=== PATIENT | female | born 1965 | race Caucasian/White ===

== ENCOUNTER → 2019-11-10 15:50 | Outpatient (CLI) | payer BC, SELFPAY ==
--- NOTE | ~2019-11-10 | XR_ITS ---
EXAMINATION: XR chest 2V 11/10/2019 16:15 INDICATION: Cough PROCEDURE: 2 view chest COMPARISON: 12/12/2014 FINDINGS: The lungs are clear. The cardiomediastinal silhouette is within normal limits. There are no pleural effusions. There is no pneumothorax suspected. IMPRESSION: 1: NO ACUTE CARDIOPULMONARY DISEASE. Reviewed, dictated and finalized at location B. NING PROGRAM DEVELOPER
--- NOTE | ~2019-11-10 | US_ITS ---
EXAMINATION: US thyroid DATE: 11/10/2019 16:13 INDICATION: Nontoxic single thyroid nodule. TECHNIQUE: Multiple ultrasound images of the thyroid were obtained. COMPARISON: Ultrasound 01/13/2019 FINDINGS: The right thyroid lobe measures 3.7 x 1.6 x 1.5 cm. The left thyroid lobe measures 3.8 x 1.7 x 1.6 c m. In the left thyroid lobe, there is a 1.2 cm solid, very hypoechoic, vbqiw-fwtj-luyo nodule with i ll-defined margin without echogenic foci (TI-RADS TR4). IMPRESSION: 1. Stable thyroid nodule. Thyroid ultrasound is recommended in one year. Reviewed, dictated and finalized at location A. R SYSTEMS ENGINEER
== END ==
PROVIDERS: Visit Provider Internal Medicine Endocrinology, Diabetes & Metabolism
DX: E04.1 Nontoxic single thyroid nodule (principal); R05 Cough
CPT/HCPCS: 71046; 76536

== ENCOUNTER 2020-02-18 17:08 | Outpatient (CLI) | payer BC, SELFPAY ==
--- NOTE | ~2020-02-18 | XR_ITS ---
EXAMINATION: XR ankle RT min 3V DATE: 02/18/2020 17:49 INDICATION: Right ankle pain. TECHNIQUE: 4 views of right ankle were obtained. COMPARISON: Right ankle radiographs 12/28/2013 FINDINGS: Bone alignment is normal. No fracture. Joint spaces are normal. There are enthesophytes at medial malleolus and plantar aspect of calcaneal tuberosity. IMPRESSION: 1. No fracture. Reviewed, dictated and finalized at location A. IMPRESSION: 1. No fracture.
== END 2020-02-18 17:09 | disposition home or self-care (01) ==
PROVIDERS: PCP Chiropractor; Visit Provider Chiropractor
DX: M25.571 Pain in right ankle and joints of right foot (principal)
CPT/HCPCS: 73610

== ENCOUNTER → 2020-04-23 10:56 | Outpatient (CLI) | payer BC, SELFPAY ==
--- NOTE | ~2020-04-23 | US_ITS ---
EXAMINATION: US thyroid DATE: 04/23/2020 11:28 INDICATION: Nontoxic goiter. TECHNIQUE: Multiple ultrasound images of the thyroid were obtained. COMPARISON: Thyroid ultrasound 11/10/2019, 01/13/2019 FINDINGS: The right thyroid lobe measures 4.1 x 1.7 x 1.7 cm. The left thyroid lobe measures 4.1 x 1.9 x 1.7 c m. In the left thyroid lobe, there is a 10 mm solid, very hypoechoic, rtamg-okrw-mgyk nodule with il l-defined margin without echogenic foci (TI-RADS TR4). In the right thyroid lobe, there is a 5 mm robby id, very hypoechoic, uicxv-xzxc-bplm nodule with smooth margin without echogenic foci (TR4). There is a 4 mm nodule in right thyroid lobe. In right thyroid lobe, there is a 7 mm solid, hyperechoic, wide r-than-tall nodule with smooth margin without echogenic foci (TR3). In the right thyroid lobe, there is a 1.1 cm solid, hyperechoic, jlenj-tsag-ujqb nodule with smooth margin without echogenic foci (TR3 ). IMPRESSION: 1. Thyroid nodules. Thyroid ultrasound is recommended in one year. Reviewed, dictated and finalized at location B.
== END ==
PROVIDERS: PCP Family Medicine; Visit Provider Internal Medicine Endocrinology, Diabetes & Metabolism
DX: E04.2 Nontoxic multinodular goiter (principal)
CPT/HCPCS: 76536

== ENCOUNTER → 2020-04-23 10:56 | Outpatient (CLI) | payer BC, SELFPAY ==
--- NOTE | ~2020-04-23 | CT_ITS ---
EXAMINATION: CT abdomen pelvis wo con EXAM DATE: 04/23/2020 11:16 INDICATION: Hematuria, acute left flank pain. TECHNIQUE: Spiral CT of the abdomen and pelvis was performed without contrast. Axial, coronal and sag ittal images were reviewed. The dose-length product (DLP) for this examination was 960.87 mGy-cm. T he exposure was tailored according to patient size (auto mA exposure control), and iterative reconstr uction (ASIR) was used as additional dose reduction technique. There is no prior study for compariso n. FINDINGS: There is no nephrolithiasis or hydronephrosis. The uterus is unremarkable. The bladder is unremarkable. The liver, spleen, adrenal glands and pancreas are unremarkable. There are cholecy stectomy clips. There is no retroperitoneal or pelvic lymphadenopathy. The appendix is normal. Small umbilical and supraumbilical hernias containing nonobstructed small roel wel. Stomach is unremarkable. There is mild sigmoid colonic diverticulosis. There is no adjacent inf lammatory change to suggest diverticulitis. There is expected amount of colonic stool. No free intr aperitoneal gas. The heart is normal in size. There are no pericardial or pleural effusions. The lung bases are unremarkable. The bones are unremarkable. IMPRESSION: 1. No nephrolithiasis, hydronephrosis or acute intra-abdominal findings. 2. Small umbilical, supra umbilical hernias containing nonobstructed small bowel Reviewed, dictated and finalized at location A. IMPRESSION: 1. No nephrolithiasis, hydronephrosis or acute intra-abdominal findings. 2. Small umbilical, supra umbilical hernias containing nonobstructed small bow el
== END ==
PROVIDERS: PCP Family Medicine
DX: R31.9 Hematuria, unspecified (principal); R10.9 Unspecified abdominal pain; K42.9 Umbilical hernia without obstruction or gangrene
CPT/HCPCS: 74176

== ENCOUNTER 2020-09-28 13:13 | Emergency (ER) | payer BC, SELFPAY ==
--- NOTE | 2020-09-28 13:14 | ED.GENADULT ---
HPI - General Adult General Stated complaint: loss of taste/smell/cough Time Seen by Provider: 09/28/20 13:14 Source: patient Mode of arrival: ambulatory Limitations: no limitations History of Present Illness HPI narrative: 55-year-old female patient presents to the [facility] with complaints of cold symptoms, cough and a sore throat for the past 5 to 6 days. Patient states she lost her taste and smell couple of days goes as well. Patient does have history of type 2 diabetes and thought that this could be side effects because they recently changed her insulin. Patient states her sugars have been elevated recently but that is again what she thought was due to her recent medication change. Patient states she has had a cough and a little bit of chest soreness when she coughs but denies any current chest pain or shortness of breath at this time. Denies any recent fevers. Denies any nausea, vomiting or diarrhea. Related Data Home Medications Medication Instructions Recorded Confirmed glimepiride 1 mg PO DAILY 09/28/20 09/28/20 levothyroxine 25 mcg PO DAILY 09/28/20 09/28/20 Allergies Allergy/AdvReac Type Severity Reaction Status Date / Time levofloxacin Allergy Intermediate Rash Verified 09/28/20 13:51 nystatin Allergy Unknown Rash Verified 09/28/20 13:51 Review of Systems Review of Systems: Narrative: CONSTITUTIONAL: Denies fever, chills, or sweats. EYES: Denies visual changes, redness, or discharge. ENT: Denies rhinorrhea, congestion, positive sore throat, denies otalgia. Positive loss of taste and smell CARDIOVASCULAR: Denies chest pain, palpitations, or edema. RESPIRATORY: Positive cough, denies dyspnea. GASTROINTESTINAL: Denies abdominal pain, nausea, vomiting, or diarrhea. GENITOURINARY: Denies dysuria or hematuria. SKIN: Denies rash or itching. MUSCULOSKELETAL: Denies back pain, joint pain, or myalgia. NEUROLOGIC: Positive headache, denies numbness, or weakness. PSYCHIATRIC: Denies anxiety or depression. [facility] Past Medical History Medical History (Updated 09/28/20 @ 14:01 by JAMAL Nation) Abnormal uterine bleeding Asthma Carpal tunnel syndrome Diverticulitis Kidney stones Rosacea Sleep apnea Type 2 diabetes mellitus Awfga-Vraxivcqt-Hebwt (WPW) syndrome Surgical History Surgical History (Updated 09/28/20 @ 13:18 by JAMAL Nation) H/O inguinal hernia repair Hx of cholecystectomy Family History Family History Father Family history of lung cancer Other Diabetes mellitus Family history of coronary artery disease Social History Social History Smoking status: Never smoker Alcohol intake: never Comments At the time of my signature I agree with nursing past medical history, surgical, social, and family history. There is no relevant family history pertinent to the presenting complaint. Exam Narrative: Exam Narrative: GENERAL: Well-appearing, well-nourished, and in no acute distress. HEAD: Normocephalic, atraumatic. EYES: PERRLA and EOMI. ENT: Nares clear, no rhinorrhea or epistaxis. Mucous membranes moist. Bilateral TMs are clear with no erythema or foreign bodies in the canal. Posterior pharynx with no erythema, tonsillar Zeferino, exudates or lesions present. NECK: Supple. No lymphadenopathy CHEST: Clear to auscultation. No respiratory distress. Patient able talk in clear complete sentences but there is some coughing noted during the exam. No tripoding noted at this time. HEART: Regular rate and rhythm. No murmur heard. Normal peripheral pulses. ABDOMEN: Soft, nontender, nondistended, normal active bowel sounds. EXTREMITIES: Normal range of motion. No edema. SKIN: Warm, dry, no rash. NEURO: No focal deficits. Alert and oriented x3. Course Vital Signs Vital signs: Vital Signs Temperature 37.0 C 09/28/20 13:29 Pulse Rate 98 09/28/20 13:29 Blood Pressure 1
[2020-09-28 13:29] VITALS: BP 112/84; PULSE 98; TEMP 37; O2SAT 99
== END 2020-09-28 14:10 | disposition home or self-care (01) ==
PROVIDERS: Emergency Provider Nurse Practitioner Family; PCP Family Medicine
DX: U07.1 COVID-19 (principal); J45.909 Unspecified asthma, uncomplicated; G47.30 Sleep apnea, unspecified; E11.9 Type 2 diabetes mellitus without complications; I45.6 Pre-excitation syndrome
CPT/HCPCS: 87426; 99213; C9803; G0463

== ENCOUNTER → 2021-02-09 17:11 | Outpatient (CLI) | payer BC, SELFPAY ==
--- NOTE | ~2021-02-09 | XR_ITS ---
XR hip RT min 2V DATE: 02/09/2021 19:09 INDICATION: Right hip pain TECHNIQUE: AP and lateral views COMPARISON: 12/2014 pelvis 11/07/2014 right hip FINDINGS: No fracture or dislocation, avascular necrosis or bone destruction of the right hip is evid ent. Right hip joint space appears relatively preserved. The pubic symphysis and right sacroiliac joselito nt appear intact. IMPRESSION: No significant abnormality Reviewed, dictated and finalized at location A. IMPRESSION: No significant abnormality
--- NOTE | ~2021-02-09 | XR_ITS ---
XR lumbar spine min 4V DATE: 02/09/2021 19:09 INDICATION: Low back pain TECHNIQUE: AP, lateral, bilateral oblique views and coned lateral lumbosacral view COMPARISON: 12/12/2014 lumbosacral spine FINDINGS: Diffuse osteopenia. Degenerative spurring of the lower thoracic spine. Mild lumbar scoliosis. There is moderate to moderately severe degenerative disc disease of the lumbar and lumbosacral spine. The included lower thoracic and lumbar pedicles are intact. No lumbar fracture or bone destruction, s pondylolysis or spondylolisthesis is detected. The sacroiliac joints are unremarkable. Multiple surgical clips overlie the right upper quadrant, consistent with cholecystectomy. IMPRESSION: Thoracic and lumbar spondylosis Diffuse osteopenia Reviewed, dictated and finalized at location A.
== END ==
PROVIDERS: PCP Family Medicine; Visit Provider Chiropractor
DX: M54.5 Low back pain (principal); M25.551 Pain in right hip; M47.814 Spondylosis without myelopathy or radiculopathy, thoracic region; M47.816 Spondylosis without myelopathy or radiculopathy, lumbar region; M85.88 Other specified disorders of bone density and structure, other site
CPT/HCPCS: 72110; 73502

== ENCOUNTER → 2021-08-26 09:31 | Outpatient (CLI) | payer BC, SELFPAY ==
--- NOTE | ~2021-08-26 | US_ITS ---
EXAMINATION: US thyroid DATE: 08/26/2021 09:56 INDICATION: Goiter. TECHNIQUE: Multiple ultrasound images of the thyroid were obtained. COMPARISON: Ultrasound 04/23/2020, 01/13/2019 FINDINGS: The right thyroid lobe measures 4.2 x 1.5 x 1.7 cm. The left thyroid lobe measures 3.6 x 1.2 x 1.7 c m. In the left thyroid lobe, there is a 4 mm nodule. In the right thyroid lobe, there is a 6 mm clau d, hypoechoic, qoavt-fvjd-baut nodule with smooth margin without echogenic foci (TI-RADS TR4). In the right thyroid lobe, there is a 7 mm solid, hypoechoic, kxpcu-lequ-dvjk nodule with smooth margin wit hout echogenic foci (TR4). IMPRESSION: 1. Small thyroid nodules, likely not clinically significant. No follow-up is needed. Reviewed, dictated and finalized at location A. ER IMPRESSION: 1. Small thyroid nodules, likely not clinically significant. No follow-up is ne eded.
== END ==
PROVIDERS: Visit Provider Internal Medicine Endocrinology, Diabetes & Metabolism
DX: E04.2 Nontoxic multinodular goiter (principal)
CPT/HCPCS: 76536

== ENCOUNTER 2022-05-18 14:45 | Outpatient (RCR) | payer BC, SELFPAY ==
--- NOTE | 2022-03-27 09:49 | PTOPEVAL ---
Thank you for referring Pascale Garcia to [facility].? She is scheduled to be seen for therapy? 2 x/week for 4 weeks. Please review, sign, date and return this plan of care LEO. I agree with and certify that the following plan of care is medically necessary. Referring Physician Date Attending Provider: Jorge Braden MD Past Medical History Source of Past Medical History Patient Neurological History Hx Cerebrovascular Accident (CVA) Yes: February 2021 Cardiovascular History Hx Hypercholesterolemia Yes: meds Hx Hypertension Yes: meds Respiratory History Hx Sleep Apnea Yes: Bipap Hx Other Respiratory Disorders Yes: SOB with exertion Gastrointestinal History Hx Cholecystectomy Yes Hx Hernia Yes: umbilical hernia repair Genitourinary History Hx Genitourinary Disorders No Significant History Musculoskeletal History Hx Arthritis Yes: B knee arthritis Hx Back Pain Yes Endocrine History Hx Diabetes Yes: meds Hx Hypothyroidism Yes: meds HEENT History Hx Other HEENT Disorders Yes: wear glasses Other History Hx Cancer Yes: skin cancer on face-- benign Hx Other Medical Conditions Yes: obesity 300# Evaluation Information Diagnosis s/p CVA with R weakness and LBP; water therapy Onset March 2021 Subjective Information had in pt rehab, then day care Query Text:As Reported By Patient/ /therapy at [facility]- stopped there Family March 10; still having problems with R leg and walking; have not done any water exercises since CVA and want to do that Prior Level of Function Activity Level (Last 3 Months) Hand Dominance Right Activity of Daily Living Ability Needs Some Help Indoor/Home Mobility Needs Some Help Community Mobility Needs Some Help Stairs Ability Not-Applicable Functional Cognition (Planning, Shopping Independent , Taking Medications) Cooking No Cleaning No Laundry No Shopping No Driving No Home Setting Home Type House Environmental Barriers Ramp Living Situation With Spouse Mobility Assistive Devices (Used Last 3 Cane, Large Based Quad,Walker, Months) Platform,Walker, Wheeled, Wheelchair, Motorized Bathing Equipment Grab Bars,Hand Held Shower,Tub Transfer Bench Toileting Equipment
--- NOTE | 2022-03-27 11:50 | OTOPEVAL ---
OCCUPATIONAL THERAPY INITIAL EVALUATION AND POC 03/27/22 Thank you for referring Pascale Garcia to [facility].? The patient is scheduled to be seen for therapy?2x/week for 5 weeks. Plan 1x/week aquatic and 1x/week land. Please review, sign, date and return this plan of care LEO. I agree with and certify that the following plan of care is medically necessary. Referring Physician Date Referring Provider: Jorge Braden, *OT Outpatient Evaluation Start: 03/27/22 09:27 Outpatient Past Medical History Past Medical History Source of Past Medical History Patient Neurological History Hx Cerebrovascular Accident (CVA) Yes: February 2021 Cardiovascular History Hx Hypercholesterolemia Yes: meds Hx Hypertension Yes: meds Respiratory History Hx Sleep Apnea Yes: Bipap Hx Other Respiratory Disorders Yes: SOB with exertion Gastrointestinal History Hx Cholecystectomy Yes Hx Hernia Yes: umbilical hernia repair Genitourinary History Hx Genitourinary Disorders No Significant History Musculoskeletal History Hx Arthritis Yes: B knee arthritis Hx Back Pain Yes Endocrine History Hx Diabetes Yes: meds Hx Hypothyroidism Yes: meds HEENT History Hx Other HEENT Disorders Yes: wear glasses Other History Hx Cancer Yes: skin cancer on face-- benign Hx Other Medical Conditions Yes: obesity 300# Evaluation Information Problem Diagnosis s/p CVA with R sided weakness Onset March 2021 Subjective Information Patient is s/p inpatient rehab Query Text:As Reported By Patient/ then day care/therapy at [facility] Family - this stopped there March 10. Has a resting hand splint for night use. Has a Saebo finger extension brace also but there have been difficulties with skin redness/pressure in this brace and she hasn't been wearing this one for a few weeks. She gets botox in the right UE and LE, next one scheduled for 04/05/22. Prior Level of Function Activity Level (Last 3 Months) Hand Dominance Right Activity of Daily Living Ability Needs Some Help Indoor/Home Mobility Needs Some Help Community Mobility Needs Some Help Stairs Ability Not-Applicable Functional Cognition (Planning, Shopping Independent , Taking Medications) Cooking No Cleaning No Laundry No Shopping No D
--- NOTE | 2022-04-25 11:43 | PTOPEVAL ---
PHYSICAL THERAPY REEVALUATION AND UPDATED PLAN OF CARE 04-25-22 Refer to the clinical summary below, for her status today, compared to the initial evaluation. The goals were partially achieved. Continue PT treatment on land, 2x/wk for 3 weeks. Thank you for referring Pascale Garcia to [facility].? Please review, sign, date and return this updated plan of care LEO. I agree with and certify that the following plan of care is medically necessary. Referring Physician Date Attending Provider: Jorge Braden MD Subjective Information Pascale reports: feels like her Query Text:As Reported By Patient/ standing is better; have not Family had any falls; use the ankle brace for R as needed when doing more walking; want to be able to stand at the kitchen counter to help with some cooking; want to continue therapy to get stronger and walk more; Pain Assessment Timing of Pain Assessment Timing of Pain Assessment Re-assessment Self Report Self Report Pain Level 0 Pain Score Pain Score 0: Self Report Gross Lower Extremity Strength functional strength testing: - sit to/from stand from 15 seat height, without use of UE x 5 reps indep -supine SLR R 22--decreased control of knee- hold flexion/ L 25 reps; - supine hip abduction R 22-- flexion tone and spasms of leg /L 25 reps -------- in supine, hip and knee flexion-- unable to lie flat due to flexion of hips and knees; verbal review of HEP, reinforced doing supine exercises, she tends to do only sitting exercises due to transfer in/out bed is hard to do -------- static stand without UE support 1 min & 32 seconds; increased wt shift onto L LE; performed L shoulder motion: flexion and abduction x 15 reps each and able to maintain her standing balance; Bed Mobility Bed Type Mat
--- NOTE | 2022-04-27 11:10 | OTOPEVAL ---
OCCUPATIONAL THERAPY RE-EVALUATION REPORT 04/27/22 Patient presents today for OT re-evaluation after 8 outpatient sessions for right UE hemiplegia and tone following CVA. Her treatments have consisted of aquatic therapy as well as land sessions focused on improving right UE flexibility, strength, and functional use. As described above she is making gains with functional ROM and flexibility. She is very motivated and compliant with her HEP. Continued skilled OT indicated to progress her HEP, continued functional strengthening, and therapeutic activities to facilitate optimal functional independence. Thank you for referring Pascale Garcia to [facility].? The patient is scheduled to be seen for therapy? 2x/week for 3 weeks. Please review, sign, date and return this plan of care LEO. I agree with and certify that the following plan of care is medically necessary. Referring Physician Date Referring Provider: Jorge BradenMD *OT Outpatient Evaluation Start: 03/27/22 09:27 Evaluation Information Diagnosis s/p CVA with R sided weakness Onset March 2021 Subjective Information Patient reports that she feels Query Text:As Reported By Patient/ like her arm is improving. 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 Pain Assessment Timing of Pain Assessment Timing of Pain Assessment Assessment Self Report Self Report Pain Level 0 Pain Score Pain Score 0: Self Report Upper Extremity Range of Motion Scapular/ Shoulder Range of Motion Right Shoulder Flexion - Active 30 Shoulder Extension - Active 40 Shoulder Abduction - Active 60 Scapular/Shoulder Range of Motion Shoulder flexion improved from Comments 20 degrees Extension improved from 30 degrees Abduction improved from 30 degrees Elbow/Forearm Range of Motion Right Elbow Flexion - Active 130 Elbow Extension - Active -50 Forearm Supination - Active 0 Forearm Supination - Passive 90 Forearm Pronation - Active 30 Forearm Pronation - Passive 90 Elbow/Forearm Range of Motion Comments Pt is actively moving into neutral with supination and about 30 degrees pronation. Passive is WFL and she no longer has pain with passive supination. Wrist Range of Motion Right Wrist Flexion - Active 0 Wrist Extension - Active 20 Wrist Range of Motion Comments She had no active wrist motion at the initial eval. Today she was able to extend the wrist 20 degrees.
--- NOTE | 2022-05-18 14:32 | OTOPDC ---
Evaluation Information Assessment Status Discharge Diagnosis s/p CVA with right sided weakness Onset March 2021 Subjective Information Pascale has participated in 13 outpatient OT treatment sessions, which have included aquatic and land, to facilitate improved right UE ROM and strength. She has a resting hand splint, which has been difficult to wear due to tone, but they have been trying to wear it as able. She reports intermittent compliance with her HEP. Reported Pain Level Pain Score 0: Self Report Assessment OT Clinical Summary Patient presents today for OT re-evaluation for right UE hemiplegia and tone following CVA. At this time she has reached a progress plateau with ROM and strength of the right UE. She is continues to be limited by weakness and tone. Discussed the importance of home program carryover daily for optimal results. We are discharging today with the patient independent with HEP. Plan of Care OT Services Indicated No
--- NOTE | 2022-05-18 15:01 | PTOPDC ---
Evaluation Information Assessment Status Discharge Subjective Information Pascale reports: was able to get L pant leg and shoe on herself; is trying to walk more from room /room in the house, only when someone is with her; have not used quad cane due to fear of falling and not steady enough when walking; no falls; easier to get up from sitting on recliner or couch ; is not using any ankle brace on R; Reported Pain Level Pain Score self report: at rest 0/10 Pain Score 0: Self Report Additional Pain Score Comments knee pain increases with standing and walking, to 8/10 at worst Assessment PT Clinical Summary Pascale has received 12 PT sessions. Compared to the last reevaluation: static standing has increased by 18 seconds; gait distance has increased by 40' and required 3 more standing rest breaks; LE strength is increased slightly; Her gait pattern is the same, continues to have increased tone in R LE; SOB and B knee pain limit her also. The goals were partially achieved. Discharge PT services, and she is to continue with her LE exercises at home and walking in home. Plan of Care PT Services Indicated No
== END 2022-05-19 09:45 | disposition home or self-care (01) ==
LOC: ANHPT 14:45
PROVIDERS: PCP Family Medicine; Referring Provider Family Medicine; Visit Provider Family Medicine
DX: M54.50 Low back pain, unspecified (principal); I69.851 Hemiplegia and hemiparesis following other cerebrovascular disease affecting right dominant side; I63.319 Cerebral infarction due to thrombosis of unspecified middle cerebral artery
CPT/HCPCS: 97110; 97112; 97113; 97116; 97140; 97162; 97165; 97530

== ENCOUNTER → 2022-05-22 13:52 | Outpatient (CLI) | payer BC, SELFPAY ==
--- NOTE | ~2022-05-22 | US_ITS ---
EXAMINATION: US thyroid DATE: 05/22/2022 14:17 INDICATION: Goiter. TECHNIQUE: Multiple ultrasound images of the thyroid were obtained. COMPARISON: Ultrasound 08/26/2021, 04/23/2020, 01/13/2019 FINDINGS: The right thyroid lobe measures 3.4 x 1.5 x 1.5 cm. The left thyroid lobe measures 3.4 x 1.5 x 1.1 c m. In the right thyroid lobe, there is a 5 mm solid, hypoechoic, wider than tall nodule with ill-def ined margin without echogenic foci (TI-RADS TR4). In the right thyroid lobe, there is a 4 mm nodule. In the left thyroid lobe, there is a 4 mm nodule. In the left thyroid lobe, there is a 11 mm solid, h ypoechoic, wider than tall nodule with lobulated margin without echogenic foci (TR4), stable from 01/13. IMPRESSION: 1. Multinodular goiter. Thyroid ultrasound is recommended in 2 years. Reviewed, dictated and finalized at location A.
== END ==
PROVIDERS: PCP Family Medicine; Visit Provider Internal Medicine Endocrinology, Diabetes & Metabolism
DX: E04.2 Nontoxic multinodular goiter (principal)
CPT/HCPCS: 76536

== ENCOUNTER 2022-08-26 23:01 | Observation (INO) | payer BC, SELFPAY ==
--- NOTE | ~2022-08-26 | XR_ITS ---
EXAMINATION: XR chest 2V DATE: 08/26/2022 23:35 INDICATION: Leg weakness, stroke symptoms TECHNIQUE: AP and lateral views of the chest are obtained. COMPARISON: 11/10/2019 FINDINGS: The lungs are free of acute opacities. No pleural effusion or pneumothorax. The cardiomedia stinal silhouette is normal. There is mild thoracic spondylosis. IMPRESSION: 1. No acute cardiopulmonary abnormality. Reviewed, dictated and finalized at location A. [employer]
--- NOTE | ~2022-08-26 | MR_ITS ---
EXAMINATION: MR brain/brain stem wo/w con DATE: 08/27/2022 12:31 INDICATION: Stroke symptoms TECHNIQUE: Magnetic resonance imaging (MRI) of the brain and brainstem was performed without and with 20 mL Multihance intravenous contrast. Sequences included sagittal and axial T1-weighted SE, axial d iffusion-weighted FS SE, axial T2*-weighted GRE, axial T2-weighted FLAIR, and axial T2-weighted FSE. Postcontrast axial and coronal T1-weighted SE was obtained. Apparent diffusion coefficient (ADC) maps were created. COMPARISON: None. FINDINGS: There are no areas of restricted diffusion to suggest acute infarction. Small region of encephalomala rajesh in the left basal ganglia involving the posterior limb of the left internal capsule and adjacent posterior left lentiform nucleus consistent with chronic infarct. No intracranial hemorrhage or abnor mal intracranial mass lesion. There are scattered areas of nonspecific increased T2-weighted signal i ntensity in the cerebral and pontine white matter, predominantly involving the deep and periventricul ar white matter. There are no intraparenchymal signal abnormalities seen on the other pulse sequences . The ventricles are symmetric and normal in size. There are no abnormal extra-axial fluid collection s. Flow voids are seen in the cerebral arteries on the T2-weighted sequences consistent with their ex pected patency. Changes of bilateral intraocular lens replacement. Mucosal thickening the paranasal s inuses. There are no areas of abnormal enhancement on the post contrast images. IMPRESSION: 1. No acute intracranial process or abnormally enhancing brain lesions. 2. Small old infarct at the left basal ganglia 3. Scattered nonspecific cerebral and pontine white matter T2 hyperintensity most likely related to c hronic small vessel ischemic disease. Reviewed, dictated and finalized at location A. ULTING GROUP ANALYST IMPRESSION: 1. No acute intracranial process or abnormally enhancing brain lesions. 2. Small old infarct at the left basal ganglia 3. Scattered nonspecific cerebral and pontine white matter T2 hyperintensity mo st likely related to chronic small vessel ischemic disease.
--- NOTE | ~2022-08-26 | US_ITS ---
EXAMINATION: US carotid duplex BI DATE: 08/27/2022 13:44 INDICATION: Stroke symptoms with vertigo and disturbance of skin sensation. TECHNIQUE: Grayscale, color Doppler, and pulsed Doppler images of the cervical carotid arteries were obtained. The degree of vessel stenosis is placed in one of the following categories: normal, <50%, 5 0-69%, >=70% but less than near-occlusion, near-occlusion, or total occlusion. Note that percent sten osis relative to normal distal artery lumen diameter is indirectly measured from velocity measurement s as described by Brandon, et al. Radiology 2003; 229:340-346. COMPARISON: None. FINDINGS: RIGHT: The right common carotid artery (CCA) peak systolic velocity (PSV) is 82 cm/s. The right internal car otid artery (ICA) PSV is 68 cm/s. The right ICA end-diastolic velocity (EDV) is 19 cm/s. The right IC A/CCA PSV ratio is 0.8. Grayscale and color Doppler images yield an estimate of <50% diameter reducti on from plaque in the ICA. The external carotid artery (ECA) PSV is 95 cm/s. There is antegrade flow in the right vertebral artery. LEFT: The left CCA PSV is 102 cm/s. The left ICA PSV is 97 cm/s. The left ICA EDV is 35 cm/s. The left ICA/ CCA PSV ratio is 0.9. Grayscale and color Doppler images yield an estimate of <50% diameter reduction from plaque in the ICA. The ECA PSV is 126 cm/s. There is antegrade flow in the left vertebral arter y. IMPRESSION: 1. <50% stenosis in the right internal carotid artery. 2. <50% stenosis in the left internal carotid artery. Reviewed, dictated and finalized at location A. OCCUPATIONAL THERAPY ASST
--- NOTE | ~2022-08-26 | CT_ITS ---
EXAMINATION: CT brain wo con INDICATION: Lower limb weakness COMPARISON: None TECHNIQUE: Standard unenhanced head CT. The dose-length product (DLP) was 605.33 mGy-cm. The mA was a djusted according to patient size. Iterative reconstruction technique was employed. FINDINGS: There is no acute intraparenchymal hemorrhage. No evidence of mass lesion. No evidence of a cute infarction. There is an old lacunar infarct of the left basal ganglia and queen radiata. There is mild periventricular and subcortical hypodensity probably related to small vessel ischemic disease . There is mild prominence of the sulci and ventricles related to cerebral atrophy. Intracranial calc ified cerebral atherosclerosis is noted. There are no extra-axial collections. There is no mass effec t or midline shift. The orbits and soft tissues are unremarkable. The visualized sinuses and mastoid air cells are well aerated. IMPRESSION: 1. No acute intracranial abnormality. 2. Age related findings. Reviewed, dictated and finalized at location A. HER MACHINE
[2022-08-26 23:00] VITALS: BP 134/82; PULSE 84; RESP 18; O2SAT 98
[2022-08-26 23:27] LABS: Basophils Percent Auto 0.6 % (0.2-1.2); Eosinophils Absolute Auto 0.1 K/mm3 (0-0.3); Hematocrit 43.6 % (37.0-47.0); Hemoglobin 14.3 g/dL (12.0-15.0); Immature Granulocyte Absolute 0.02 K/mm3 (0.00-0.031); Immature Granulocyte Percent A 0.3 % (0-0.5); Lymphocytes Absolute Auto 2.64 K/mm3 (0.9-3.2); Lymphocytes Percent Auto 37.2 % (18.3-44.2); Mean Corpuscular HGB Conc 32.8 g/dl (32-36); Mean Corpuscular Hemoglobin 29.2 pg (26-34); Mean Corpuscular Volume 89.2 fl (80-100); Mean Platelet Volume 9.4 fl (7.4-10.4); Monocytes Absolute Auto 0.6 K/mm3 (0.1-0.6); Monocytes Percent Auto 7.9 % (2.6-8.5); Neutrophils Absolute Auto 3.7 K/mm3 (1.3-6.7); Platelet Count Result 205 k/mm3 (150-375); Red Blood Count 4.89 M/mm3 (4.2-5.4); Red Cell Distribution Width 13.7 % (11.5-14.5); White Blood Count 7.1 K/mm3 (4.5-10.0)
[2022-08-26 23:29] LABS: Glucose Point of Care 150 mg/dl (65-105)
[2022-08-26 23:37] LABS: Alanine Aminotransferase 29 U/L (6-35); Albumin Level 4.4 g/dL (3.5-5.1); Alkaline Phosphatase 116 U/L (38-126); Anion Gap 7 mmol/L (8-16); Aspartate Amino Transferase 35 U/L (14-36); Bilirubin,Total 0.9 mg/dL (0.2-1.3); Blood Urea Nitrogen 10 mg/dL (7-17); Calcium 9.4 mg/dL (8.4-10.2); Carbon Dioxide 27 mmol/L (22-30); Chloride 104 mmol/L (98-107); Estimated Glomerular Filt Rate > 60; Glucose 162 mg/dL (65-110); Sodium 138 mmol/L (137-145)
[2022-08-26 23:49] LABS: Troponin I < 0.012 ng/mL (0.000-0.034)
--- NOTE | 2022-08-27 00:18 | ED.NEUROSD ---
HPI - Neuro Symptoms/Deficit General Chief Complaint: Neuro Symptoms/Deficit Stated Complaint: CODE STROKE Time Seen by Provider: 08/26/22 23:06 History of Present Illness HPI Narrative: Patient is a 56-year-old female who presents ER with concerns for stroke. She reports tonight she was having heaviness in her right leg as well as some pain in her shoulder with right deltoid numbness. She had similar symptoms 24 hours prior to this that only abated after she woke up from going to bed. Patient had a stroke 6 months ago that left her with residual right-sided weakness and contractures not functional. She gets Botox injections through this at [facility]. Related Data Home Medications Medication Instructions Recorded Confirmed levothyroxine 25 mcg tablet 25 mcg PO DAILY 09/28/20 08/27/22 atorvastatin 40 mg tablet 40 mg PO DAILY 08/27/22 08/27/22 baclofen 5 mg tablet 10 mg PO Q6H 08/27/22 08/27/22 cyclobenzaprine 10 mg tablet 10 mg PO TID PRN Spasms 08/27/22 08/27/22 dapagliflozin 5 mg tablet (Farxiga) 5 mg PO DAILY 08/27/22 08/27/22 docusate sodium 100 mg capsule 100 mg PO BID 08/27/22 08/27/22 (Colace) ergocalciferol (vitamin D2) 1,250 50,000 unit PO WEEKLY 08/27/22 08/27/22 mcg (50,000 unit) capsule (Vitamin D2) fluoxetine 20 mg capsule 20 mg PO DAILY 08/27/22 08/27/22 gabapentin 300 mg capsule 300 mg PO BID 08/27/22 08/27/22 lisinopril 10 mg tablet 10 mg PO DAILY 08/27/22 08/27/22 melatonin 10 mg tablet 10 mg PO HS 08/27/22 08/27/22 meloxicam 15 mg tablet 15 mg PO DAILY 08/27/22 08/27/22 metoprolol tartrate 25 mg tablet 25 mg PO BID 08/27/22 08/27/22 ondansetron 4 mg disintegrating 4 mg PO Q6H PRN Nausea 08/27/22 08/27/22 tablet pantoprazole 40 mg tablet,delayed 40 mg PO QAM 08/27/22 08/27/22 release semaglutide 14 mg tablet (Rybelsus) 14 mg PO QAM 08/27/22 08/27/22 tramadol 50 mg tablet 50 mg PO Q6H PRN Pain 08/27/22 08/27/22 Allergies Allergy/AdvReac Type Severity Reaction Status Date / Time levofloxacin Allergy Intermediate Rash Verified 09/28/20 13:51 nystatin Allergy Unknown Rash Verified 09/28/20 13:51 Review of Systems Review of Systems: All systems reviewed & are unremarkable except as noted in HPI and below Constitutional: Constitutional: Denies chills, Denies fatigue and Denies fever(s) ENT: Denies nasal congestion and Denies sore throat Cardiovascular: Cardiovascular: Denies chest pain, Denies rapid heart rate and Denies radiating jaw, neck or arm pain Respiratory: Respiratory: Denies cough and Denies dyspnea Gastrointestinal: Gastrointestinal: Denies abdominal pain, Denies nausea and Denies vomiting Integumentary/Breasts: Skin/Breast: Denies erythema and Denies rash Neurologic: Denies syncope, Denies headache(s), Reports focal weakness and Reports numbness PMFSH Past Medical History Medical History (Updated 08/27/22 @ 06:36 by Tomer Lerner MD) Abnormal uterine bleeding Asthma Carpal tunnel syndrome CVA (cerebral vascular accident) Diverticulitis Kidney stones Rosacea Sleep apnea Type 2 diabetes mellitus Ddnrm-Jzcmrsfmd-Ielwp (WPW) syndrome Surgical History Surgical History (Updated 09/28/20 @ 13:18 by JAMAL Nation) H/O inguinal hernia repair Hx of cholecystectomy Family History Family History (Updated 08/27/22 @ 05:40 by Austin Chavarria RN) Father Family history of lung cancer Mother Family history of coronary artery disease Other Diabetes mellitus Social History Social History Smoking status: Never smoker Alcohol intake: never Substance use: never Lack of Transportation: No Lack of Food: Never True Current Housing: I Have Housing Concerned About Future Housing: No Difficulty Paying Gas/Electric Bills: No Difficulty Paying for Meds: No Currently Unemployed: No Education: High School Diploma/GED Difficulty w/ Childcare or Family Care: No Spiritual care con
[2022-08-27 00:23] LABS: Prothrombin Time 12.7 Seconds (11.1-14.7)
[2022-08-27 00:24] LABS: Partial Thromboplastin Time 29.6 SECONDS (22.3-36.8)
--- NOTE | 2022-08-27 01:00 | PC.NURSE ---
0100: Multiple nurses attempted to find viable site for IV access after EMS fails 2 attempts in route as well as mannequin decorator with no success d/t small vessels, contractures, and pt being morbidly obese. Only viable source was vein of right breast for emergent need of blood and medication access.
[2022-08-27] MEDS: CLOPIDOGREL BISULFATE 300 MG TABLET PO (02:03)
--- NOTE | 2022-08-27 02:16 | PM.IMHP ---
H&P: HPI History of Present Illness Date/Time: 08/27/22 02:16 Chief Complaint: R side weakness Narrative: This is a 56-year-old female with past medical history for stroke, morbid obesity, hypothyroidism, type diabetes mellitus, obstructive sleep apnea, were Parkinson White syndrome, carpal tunnel syndrome. Patient presented to emergency room after she had an episode of speech disturbance and right-sided weakness according to patient symptoms 1st started on Sunday however resolved and came back Sunday. Patient denies any vision changes, any nausea, vomiting, no lightheadedness, no loss of consciousness, no dizziness, no chest pain, no shortness of breath, no fevers, no rigors, no chills, no palpitations. Upon arrival to emergency room patient symptoms had resolved a stroke team was consulted and it was determined the patient was out of therapeutic window. Patient is been placed in observation for further evaluation management and treatment. Preliminary workup has been essentially nonrevealing. A CT of the head redemonstrated old stroke. [facility] Past Medical History Medical History (Updated 08/27/22 @ 04:01 by Sally Lang MD) Abnormal uterine bleeding Asthma Carpal tunnel syndrome Diverticulitis Kidney stones Rosacea Sleep apnea Type 2 diabetes mellitus Ddnnn-Wxjtanxsb-Etzis (WPW) syndrome Surgical History Surgical History (Updated 09/28/20 @ 13:18 by JAMAL Nation) H/O inguinal hernia repair Hx of cholecystectomy Family History Family History Father Family history of lung cancer Other Diabetes mellitus Family history of coronary artery disease Social History Social History Smoking status: Never smoker Alcohol intake: never Meds Home Medications and Allergies Home Medications Medication Instructions Recorded Confirmed Type benzonatate 200 mg capsule 200 mg PO TID PRN cough #30 caps 09/28/20 Rx glimepiride 1 mg tablet 1 mg PO DAILY 09/28/20 09/28/20 History levothyroxine 25 mcg tablet 25 mcg PO DAILY 09/28/20 09/28/20 History Allergies Allergy/AdvReac Type Severity Reaction Status Date / Time levofloxacin Allergy Intermediate Rash Verified 09/28/20 13:51 nystatin Allergy Unknown Rash Verified 09/28/20 13:51 Vital Signs Vital Signs - 24 hr 08/26/22 23:00 Pulse Rate 84 Respiratory Rate 18 Blood Pressure 134/82 Pulse Oximetry 98 Exam Narrative: Patient is laying in a stretcher Const: General: comfortable, no acute distress, well developed, alert, awake and obese (Morbid) Nutritional Appearance: obese morbidly obese Orientation/consciousness: patient oriented x3 HENMT: Head: normal to inspection, normocephalic and atraumatic Ears: hearing grossly normal bilaterally Face/Nose/Sinus: normal facial exam Face and sinus: normal facial exam Eyes: General: appearance normal, both eyes and all related structures Pupils: Equal, round and reactive pupils present EOM: EOMs intact bilaterally Neck: Neck: full ROM, no lymphadenopathy and no JVD Thyroid: thyroid normal Lymphatic: no lymphadenopathy noted Resp: Effort & Inspection: normal respiratory effort and able to speak in complete sentences Auscultation: clear to auscultation bilaterally Cardio: Jugular venous distension: no JVD Rate: regular rate Rhythm: regular rhythm Heart sounds: S1 normal heart sound present and S2 normal heart sound present GI: GI Palp: Yes Soft to palpation and Yes No hepatosplenomegaly present : General: Yes deferred Skin: Rashes: no rashes Wounds: no wounds Neuro: General: patient oriented x3 and CN's II-XI intact bilaterally Cranial nerves: Yes CN's II-XII intact bilaterally and Yes Equal, round and reactive pupils present Cognition (Neuro): normal cognition Speech: normal speech Gait exam (Neuro): Unable to assess gait Motor exam (neuro): 5/5 motor strength pres
[2022-08-27 03:23] LABS: Influenza A QL RT-PCR Negative (Negative); Influenza B QL RT-PCR Negative (Negative); SARS-CoV-2 RNA PCR Negative
[2022-08-27 03:37] LABS: Add Urine Microscopic? YES; Appearance Urine Clear (Clear); Bilirubin Urine Negative (Negative); Blood Urine Negative (Negative); Color Urine Light Yellow (Yellow); Glucose Urine UA 3+ mg/dL (Negative); Ketones Urine Negative (Negative); Leukocyte Esterase Ur Negative LEU/UL (Negative); Nitrate Urine Negative (Negative); Protein Urine Negative (Negative); Specific Grav Ur 1.025 (1.001-1.035); Urobilinogen Urine 0.2 mg/dL (<2.0)
[2022-08-27 03:42] LABS: Bacteria Urine Trace /hpf; Mucus Urine Rare /lpf; Squamous Epithelial Cell Urine Many /hpf (Few)
[2022-08-27 04:55] VITALS: BP 147/73; PULSE 86; RESP 20; TEMP 36.3; O2SAT 100
--- NOTE | 2022-08-27 05:02 | ADMGEN ---
This patient, Pascale Garcia, was admitted to [facility] Surg Room 317-02. Patient/family oriented to hospital policies and general routines including ID bracelet, bed and alarms, visiting hours, pain management, procedures, bathroom and other care routines, personal items, smoking policy, room service/diet, and visiting hours. Information on how to activate the Rapid Response Team has been discussed. Patient/Family are encouraged to report perceived risks to care and to ask questions if they do not understand what they are told or what they should do.
[2022-08-27 05:11] VITALS: BMI 63.6
[2022-08-27 08:00] VITALS: BP 156/83; PULSE 87; PULSE 94; RESP 20; TEMP 35.9; O2SAT 98
[2022-08-27 08:27] LABS: Glucose Point of Care 109 mg/dl (65-105)
--- NOTE | 2022-08-27 08:30 | PM.IMPN ---
Progress Note: A&P Assessment and Plan (1) TIA (transient ischemic attack): Code(s): G45.9 - Transient cerebral ischemic attack, unspecified Status: Acute Assessment and Plan: Patient presented after symptoms for more than 24 hours. [facility] Stroke team consulted and patient not a candidate for TPA. She had a prior stroke with right sided weakness RUE approximately 6 months ago and treated at [facility] CT head demonstrates old stroke left basal ganglia, no acute changes. Brain MRI pending Carotid US pending Echocardiogram with bubble study pending. Lipid panel with LDL <70, triglycerides 130, HDL 43. A1c 5.4% Loading dose of plavix given in ED. Continue plavix 75 mg daily and ASA 81 mg daily. Continue high-intensity statin Neurology consulted and appreciate recommendations PT/OT consult Neuro checks Q4 hours (2) Morbidly obese: Code(s): E66.01 - Morbid (severe) obesity due to excess calories Status: Chronic Assessment and Plan: Recommend weight loss through lifestyle and diet modifications (3) Sleep apnea: Code(s): G47.30 - Sleep apnea, unspecified Status: Chronic Assessment and Plan: clarify CPAP use (4) Type 2 diabetes mellitus: Qualifiers: Diabetes mellitus power shovel operator helper insulin use: without power shovel operator helper use Diabetes mellitus complication status: with circulatory complication Diabetes mellitus complication detail: with other circulatory complications Qualified Code(s): E11.59 - Type 2 diabetes mellitus with other circulatory complications Code(s): E11.9 - Type 2 diabetes mellitus without complications Status: Chronic Assessment and Plan: A1c <7%. Continue Rybelsus and Farxxiga. Patient to bring from home. (5) Rosacea: Code(s): L71.9 - Rosacea, unspecified Status: Chronic Assessment and Plan: Follow-up in outpatient setting as needed (6) Hypertension: Qualifiers: Hypertension type: primary hypertension Qualified Code(s): I10 - Essential (primary) hypertension Code(s): I10 - Essential (primary) hypertension Status: Chronic Assessment and Plan: vitals reviewed. Permissive hypertension for now. Resume lisinopril and metoprolol at home doses. (7) Hypothyroid: Qualifiers: Hypothyroidism type: acquired Qualified Code(s): E03.9 - Hypothyroidism, unspecified Code(s): E03.9 - Hypothyroidism, unspecified Status: Chronic Assessment and Plan: TSH within normal limits. Continue levothyroxine at home dose. (8) Chronic constipation: Code(s): K59.09 - Other constipation Status: Chronic Assessment and Plan: continue stool softeners Time Spent With Patient Time with patient: 15 - 25 minutes Subjective Date/time seen: 08/27/22 08:30 She reports her right leg heaviness is somewhat improved. No aphasia, slurred speech, disorientation, dysphagia or facial droop. Review of Systems Review of Systems: All systems reviewed & are unremarkable except as noted in HPI and below Exam Narrative: GENERAL: No acute distress. obese adult female sitting up in bed. HEENT: Normocephalic. Sclera non-icteric. PERRL. EOM intact. Hearing grossly intact. moist mucous membranes NECK: Supple. No JVD RESPIRATORY: RR regular and unlabored. Lung sounds clear to auscultation bilaterally. No adventitious breath sounds. CARDIO: Normal S1 and S2 regular rate and rhythm. No murmurs, gallops, or rubs. GI: soft, soft and nontender to palpation, bowel sounds present in all quadrants. SPINE: grossly normal. SKIN: no rashes or lesions. Fair, warm and dry. Fair turgor. EXTREMITIES: RUE contracted, able to perform extension at shoulder joint only. Right hand grasp 2/5 weak. LUE full ROM 5/5 strength hand grasp. RLE 3-4/5, LLE 4/5. intact dorsi and plantar flexion. no edema, redness or calf tenderness. dorsalis pedis pulses +2 bilaterally. NEURO: Slight right mo
[2022-08-27 08:42] LABS: Cholesterol 146 mg/dL (0-200); HDL Direct 43 mg/dL; Triglycerides 130 mg/dL (<150)
[2022-08-27 08:53] LABS: LDL Cholesterol Direct 66 mg/dL
[2022-08-27 08:58] LABS: Hemoglobin A1C 5.4 % (<5.7)
[2022-08-27] MEDS: ATORVASTATIN 40 MG TABLET PO (10:38)
[2022-08-27] MEDS: ASPIRIN 81 MG ENTERIC TABLET PO (10:38)
[2022-08-27] MEDS: LEVOTHYROXINE SODIUM 25 MCG TABLET PO (10:38)
[2022-08-27] MEDS: FLUoxetine HCL 20 MG CAPSULE PO (10:38)
[2022-08-27] MEDS: DOCUSATE SODIUM 100 MG CAPSULE PO (10:38)
[2022-08-27] MEDS: GABAPENTIN 300 MG CAPSULE PO ×2 (10:39→16:43)
[2022-08-27] MEDS: CYCLOBENZAPRINE HCL 10 MG TABLET PO (10:42)
[2022-08-27] MEDS: PANTOPRAZOLE 40 MG TABLET PO (11:31)
[2022-08-27] MEDS: LORazepam INJ (*CRX) 2 MG/ML VIAL 1 MG IV PUSH (11:32)
[2022-08-27] MEDS: BACLOFEN 10 MG TABLET PO ×3 (11:32→22:41)
[2022-08-27 12:00] VITALS: BP 128/79; PULSE 90; PULSE 91; RESP 20; TEMP 36.2; O2SAT 97
--- NOTE | 2022-08-27 14:58 | PHAR ---
THE FOLLOWING HOME MEDS HAVE BEEN VERIFIED BY PHARMACY: RYBELSUS 14 MG TABLETS FARXIGA 5 MG TABLETS
[2022-08-27 16:00] VITALS: PULSE 98
--- NOTE | 2022-08-27 16:37 | WPDNEURCNPN ---
Assessment and Plan Assessment and plan (1) Acute CVA (cerebrovascular accident): Code(s): I63.9 - Cerebral infarction, unspecified Status: Acute (2) Morbidly obese: Code(s): E66.01 - Morbid (severe) obesity due to excess calories Status: Acute (3) TIA (transient ischemic attack): Code(s): G45.9 - Transient cerebral ischemic attack, unspecified Status: Acute (4) Type 2 diabetes mellitus: Code(s): E11.9 - Type 2 diabetes mellitus without complications Status: Acute Plan possibility of new stroke superimposed on the old stroke MRI results are pending patient is being continued on clopidogrel 75 mg daily along with the aspirin 81 mg daily in addition to all her other medications further recommendation will be made tomorrow according to the results of the MRI Consult date: 08/27/22 HPI: Pascale Garcia is a 56 year old female admitted to the hospital through the emergency room for the concerns of stroke reportedly she was having heaviness in her right lower extremity along with pain in her right shoulder and numbness of the right deltoid she had the similar symptoms 24 hours ago which abated subsequently patient has had any stroke 6 months ago that left her with residual right hemiparesis, she has been taking multiple medications which does include atorvastatin 40 mg daily baclofen 10 mg Q 6 hours Flexeril 10 mg t.i.d. p.r.n. in addition to treatment for diabetes including Farsi the she also takes fluoxetine 20 mg daily lisinopril 10 mg daily metoprolol 25 mg b.i.d. and tramadol on p.r.n. basis, her past history is consistent with the stroke in the past sleep apnea, type 2 diabetes mellitus and Vzbgz-Brqbioyec-Bqzip syndrome, she is a never alcohol intake her or smoker and initial evaluation in the emergency room documented contractured of the right upper extremity with difficulty in lifting her right lower extremity off the bed routine vital signs with normal CBC and BMP except blood sugar of 162 she was admitted with the diagnosis of acute cerebrovascular accident her initial CT scan in the emergency room was negative for the bleed, MRI of the brain has been done to the results are not available at this particular time Review of Systems Review of Systems: All systems reviewed & are unremarkable except as noted in HPI and below [facility] Past Medical History Medical History (Updated 08/27/22 @ 06:36 by Tomer Lerner MD) Abnormal uterine bleeding Asthma Carpal tunnel syndrome CVA (cerebral vascular accident) Diverticulitis Kidney stones Rosacea Sleep apnea Type 2 diabetes mellitus Gjkna-Jkhunnrsg-Jfabh (WPW) syndrome Surgical History Surgical History (Updated 09/28/20 @ 13:18 by JAMAL Nation) H/O inguinal hernia repair Hx of cholecystectomy Family History Family History (Updated 08/27/22 @ 05:40 by Austin Chavarria RN) Father Family history of lung cancer Mother Family history of coronary artery disease Other Diabetes mellitus Social History Social History Smoking status: Never smoker Alcohol intake: never Substance use: never Lack of Transportation: No Lack of Food: Never True Current Housing: I Have Housing Concerned About Future Housing: No Difficulty Paying Gas/Electric Bills: No Difficulty Paying for Meds: No Currently Unemployed: No Education: High School Diploma/GED Difficulty w/ Childcare or Family Care: No Spiritual care concerns: No Meds Home Medications and Allergies Home Medications Medication Instructions Recorded Confirmed Type levothyroxine 25 mcg tablet 25 mcg PO DAILY 09/28/20 08/27/22 History atorvastatin 40 mg tablet 40 mg PO DAILY 08/27/22 08/27/22 History baclofen 5 mg tablet 10 mg PO Q6H 08/27/22 08/27/22 History cyclobenzaprine 10 mg tablet 10 mg PO TID PRN Spasms 08/27/22 08/27/22 History dapagliflozin 5 mg tablet (Farxiga) 5 mg PO DAILY
[2022-08-27 18:10] VITALS: BP 146/88; PULSE 83; RESP 17; TEMP 35.9; O2SAT 95
[2022-08-27 20:00] VITALS: BP 158/88; PULSE 78; PULSE 87; TEMP 36.4; O2SAT 98
[2022-08-27] MEDS: MELATONIN 5 MG TABLET 10 MG PO (22:41)
[2022-08-27] MEDS: METOPROLOL TARTRATE 25 MG TABLET PO (22:42)
[2022-08-27 23:37] LABS: Glucose Point of Care 106 mg/dl (65-105)
[2022-08-28] VITALS (10 sets, daily range): BP systolic 141–169; BP diastolic 68–95; PULSE 68–98; RESP 17–22; TEMP 35.8–36.4; O2SAT 76–98
--- NOTE | 2022-08-28 | ECHO_ITS ---
Patient Info Name: Pascale Garcia Age: 56 years : 1965 Gender: Female Ht: 59 in Wt: 314 lbs BSA: 2.54 m2 HR: 77 bpm BP: 169 / 95 mmHg Heart Rhythm: Sinus Rhythm Technical Quality: Fair Exam Date: 08/28/2022 10:06 AM Exam Location: [facility] Card Pulmonary Patient Status: Outpatient Admit Date: 08/27/2022 Staff Ordering Physician: Abigail Willis APRN Dump Motor Operator: Valeria Emanuel RDCS Attending Provider: Sally Lang MD Referring Physician: Lazaro LARA; Exam Type: CA echo doppler w bubble study Study Info Indications - stroke Complete two-dimensional, color flow and Doppler transthoracic echocardiogram is performed with agitated saline. Contrast/Agitated Saline Contrast/Ag. Saline: Agitated Saline Amount: 30.00 ml Administered By: Ely Phoenix Existing IV Access: Yes IV Access Condition: patent with no signs of infiltration Summary 1. Technically somewhat difficult exam because of obesity. 2. Left ventricular hypertrophy with normal size normal systolic function and grade 1 diastolic noncompliance. 3. Mild left atrial enlargement. 4. Mild mitral annular calcification. 5. Agitated saline contrast injection demonstrates no intracardiac shunt. Left Ventricle Left ventricular chamber dimension is normal. Left ventricular systolic function is normal, estimated at 60-65%. There is mild concentric increased left ventricular wall thickness. The left ventricular diastolic function is grade I diastolic dysfunction. Right Ventricle Right ventricular chamber dimension is normal. Left Atria Left atrial chamber dimension is mildly enlarged. Right Atria Right atrial chamber dimension is normal. Atrial Septum Intact interatrial septum visualized by agitated saline imaging. Aortic Valve The aortic valve is trileaflet. Pulmonic Valve The pulmonic valve is not well visualized. Mitral Valve The mitral valve has normal leaflets. The mitral valve annulus is mildly calcified. Tricuspid Valve The tricuspid valve leaflets are normal. Pericardium/Pleural The pericardium appears normal. Aorta The aortic root size at the sinus of Valsalva is normal. Left Ventricular Outflow Tract Name Value Normal LVOT 2D LVOT Diameter 2.0 cm LVOT Doppler LVOT Peak Gradient 5 mmHg LVOT Mean Gradient 3 mmHg LVOT VTI 28 cm LVOT VTI/AV VTI Ratio 1.0 LVOT Stroke Volume 83 ml LVOT CO 6.0 l/min LVOT CI 2.4 l/min/m2 Pulmonic Valve Name Value Normal RVOT Doppler RVOT Peak Gradient 2 mmHg PV Doppler
[2022-08-28] MEDS: WATER FOR IRRIGATION, STERILE 1,000 ML BOTTLE 1000 ML (03:08)
[2022-08-28] MEDS: BACLOFEN 10 MG TABLET PO ×3 (04:11→14:51)
[2022-08-28 06:40] LABS: Hemoglobin 13.7 g/dL (12.0-15.0); Mean Corpuscular HGB Conc 32.6 g/dl (32-36); Mean Corpuscular Hemoglobin 28.4 pg (26-34); Mean Platelet Volume 9.5 fl (7.4-10.4); Platelet Count Result 216 k/mm3 (150-375); Red Blood Count 4.83 M/mm3 (4.2-5.4); Red Cell Distribution Width 13.6 % (11.5-14.5); White Blood Count 6.2 K/mm3 (4.5-10.0)
[2022-08-28 06:50] LABS: Anion Gap 7 mmol/L (8-16); Blood Urea Nitrogen 8 mg/dL (7-17); Calcium 9.2 mg/dL (8.4-10.2); Carbon Dioxide 28 mmol/L (22-30); Chloride 104 mmol/L (98-107); Estimated Glomerular Filt Rate > 60; Glucose 117 mg/dL (65-110); Potassium 3.8 mmol/L (3.4-5.0); Sodium 139 mmol/L (137-145)
[2022-08-28] MEDS: ASPIRIN 81 MG ENTERIC TABLET PO (09:44)
[2022-08-28] MEDS: LEVOTHYROXINE SODIUM 25 MCG TABLET PO (09:44)
[2022-08-28] MEDS: CLOPIDOGREL BISULFATE 75 MG TABLET PO (09:44)
[2022-08-28] MEDS: ATORVASTATIN 40 MG TABLET PO (09:44)
[2022-08-28] MEDS: FLUoxetine HCL 20 MG CAPSULE PO (09:45)
[2022-08-28] MEDS: GABAPENTIN 300 MG CAPSULE PO ×2 (09:45→17:13)
[2022-08-28] MEDS: PANTOPRAZOLE 40 MG TABLET PO (09:45)
[2022-08-28] MEDS: METOPROLOL TARTRATE 25 MG TABLET PO ×2 (09:45→17:13)
[2022-08-28] MEDS: DOCUSATE SODIUM 100 MG CAPSULE PO ×2 (09:58→17:13)
[2022-08-28] MEDS: lisinopriL 20 MG TABLET PO (09:58)
--- NOTE | 2022-08-28 10:11 | PCPTNOTE ---
Prepped room//gather resources, but was stopped by radiology for testing. Will Complete eval as pt becomes available.
--- NOTE | 2022-08-28 10:16 | WPDNEURCNPN ---
Assessment and Plan Assessment and plan (1) Right upper extremity numbness: Code(s): R20.0 - Anesthesia of skin Status: Acute (2) Hypothyroid: Qualifiers: Hypothyroidism type: acquired Qualified Code(s): E03.9 - Hypothyroidism, unspecified Code(s): E03.9 - Hypothyroidism, unspecified Status: Chronic (3) Hypertension: Qualifiers: Hypertension type: primary hypertension Qualified Code(s): I10 - Essential (primary) hypertension Code(s): I10 - Essential (primary) hypertension Status: Chronic (4) Type 2 diabetes mellitus: Qualifiers: Diabetes mellitus complication detail: with other circulatory complications Diabetes mellitus complication status: with circulatory complication Diabetes mellitus mcc insulin use: without mcc use Qualified Code(s): E11.59 - Type 2 diabetes mellitus with other circulatory complications Code(s): E11.9 - Type 2 diabetes mellitus without complications Status: Chronic (5) Morbidly obese: Code(s): E66.01 - Morbid (severe) obesity due to excess calories Status: Chronic (6) Sleep apnea: Code(s): G47.30 - Sleep apnea, unspecified Status: Chronic Plan Pascale Garcia is a 56 year old female with a history of prior stroke, hypothyroidism, type 2 diabetes, obstructive sleep apnea, bryant parkinson white syndrome, carpal tunnel syndrome presenting with RUE numbness/paraesthesias and transient worsening of RLE weakness. MRI brain was negative for acute stroke. Other consideration for numbness of the right upper extremity is radiculopathy vs compressive neuropathy (carpal tunnel syndrome, ulnar neuropathy). - Continue ASA 81mg daily - Continue Lipitor 40mg daily - MRI of cervical spine can be done as outpatient if RUE paraesthesias persist - No further inpatient work up needed as patient is back to baseline Consult date: 08/28/22 Time Seen: 10:16 Reason for consult: RUE numbness HPI: Pascale Garcia is a 56 year old female with a history of prior stroke, hypothyroidism, type 2 diabetes, obstructive sleep apnea, bryant Parkinson white syndrome, carpal tunnel syndrome presenting with RUE numbness and RLE weakness. Patient has a history of prior stroke six months ago that resulted in residual R hemiparesis, which had improved over the course of a few months. On day of presentation, patient expressed that she was having heaviness of her RLE along with R shoulder pain and numbness over the right deltoid. The heaviness she was experiencing was worse than her baseline weakness in the RLE. She presented to [place] ED where her symptoms has resolved. Case discussed with stroke team and she was not a candidate for tPA. Her CT head was negative for acute process. Carotid doppler showed <50% stenosis bilaterally. MRI brain showed old infarct in the L basal ganglia but no acute stroke. BP was in the 130s systolic on presentation. Patient is no longer having any sensory changes in the RUE and her strength is back to baseline. Review of Systems Constitutional: Constitutional: Reports no additional constitutional complaints Eyes: Eyes: Reports no additional eye complaints ENT: Reports system reviewed and no additional complaints, except as documented Cardiovascular: Cardiovascular: Reports no additional cardiovascular complaints Respiratory: Respiratory: Reports no additional respiratory complaints Gastrointestinal: Gastrointestinal: Reports no additional gastrointestinal complaints Genitourinary: Genitourinary: Reports no additional female genitourinary complaints Musculoskeletal: Musculoskeletal: Reports back pain Integumentary/Breasts: Skin/Breast: Reports system reviewed and no additional complaints, except as docu Neurologic: Reports as per HPI Psychiatric: Psychiatric: Reports depression Comments: chronic, sees therapist [facility] Past Medical History Medical History (Reviewed 08/28/22 @ 1
--- NOTE | 2022-08-28 16:07 | PM.DS ---
DS: Admitting Diagnosis Discharge Date 08/28/2022 1607 Admitting Diagnosis TIA (transient ischemic attack) Morbidly obese Sleep apnea Type 2 diabetes mellitus right leg weakness DS: Discharge Diagnosis Discharge Diagnosis (1) TIA (transient ischemic attack): Code(s): G45.9 - Transient cerebral ischemic attack, unspecified Status: Acute Assessment and Plan: Patient presented after symptoms of right leg heaviness and weakness worsened from prior stroke symptoms. She presented more than for more than 24 hours. [facility] Stroke team consulted and patient not a candidate for TPA. She had a prior stroke with right sided weakness RUE approximately 6 months ago and treated at [facility] CT head demonstrates old stroke left basal ganglia, no acute changes. Brain MRI negative for acute stoke. Carotid US <50% right and left ICA stenosis. Echocardiogram with bubble study no shunt, grade 1 diastolic dysfunction. . Lipid panel with LDL <70, triglycerides 130, HDL 43. A1c 5.4% Loading dose of plavix given in ED. Continued plavix 75 mg daily but stopped when brain MRI negative for acute stroke Continued on ASA 81 mg daily and high-intensity statin Neurology consulted and appreciate recommendations PT/OT consulted and patient was noted to have severe anxiety/panic during therapy sessions. Xanax 0.125 mg PO x1 was trialed and helped patient participate. Home health was recommended. Neuro at baseline at discharge. No speech therapy interventions were recommended. BP 140-150/80-90s. Metoprolol continued. Lisinopril increased 20 mg daily x 7 days, then to increase to 40 mg daily. Counseled on daily BP monitoring. (2) Morbidly obese: Code(s): E66.01 - Morbid (severe) obesity due to excess calories Status: Chronic Assessment and Plan: Recommend weight loss through lifestyle and diet modifications (3) Sleep apnea: Code(s): G47.30 - Sleep apnea, unspecified Status: Chronic Assessment and Plan: Recommended CPAP use. (4) Type 2 diabetes mellitus: Qualifiers: Diabetes mellitus complication detail: with other circulatory complications Diabetes mellitus complication status: with circulatory complication Diabetes mellitus long term care administrator insulin use: without long term care administrator use Qualified Code(s): E11.59 - Type 2 diabetes mellitus with other circulatory complications Code(s): E11.9 - Type 2 diabetes mellitus without complications Status: Chronic Assessment and Plan: A1c <7%. Continue Rybelsus and Farxxiga. Patient to bring from home. (5) Rosacea: Code(s): L71.9 - Rosacea, unspecified Status: Chronic Assessment and Plan: Follow-up in outpatient setting as needed (6) Hypertension: Qualifiers: Hypertension type: primary hypertension Qualified Code(s): I10 - Essential (primary) hypertension Code(s): I10 - Essential (primary) hypertension Status: Chronic Assessment and Plan: vitals reviewed. Permissive hypertension for 24 hours post symptoms. Then antihypertensives resumed.. increased lisinopril with goal of 40 mg daily. Continued metoprolol at home doses. (7) Hypothyroid: Qualifiers: Hypothyroidism type: acquired Qualified Code(s): E03.9 - Hypothyroidism, unspecified Code(s): E03.9 - Hypothyroidism, unspecified Status: Chronic Assessment and Plan: TSH within normal limits. Continue levothyroxine at home dose. (8) Chronic constipation: Code(s): K59.09 - Other constipation Status: Chronic Assessment and Plan: continue stool softeners DS: Summary Hospital Course Reason for hospitalization: speech disturbance and right leg heaviness. Hospital Course: Pascale Garcia is a 56-year-old female with ischemic stroke approximately 6 months ago, morbid obesity, hypothyroidism, type 2 diabetes mellitus, obstructive sleep apnea, and carpal tunnel syndrome.? Patient
--- NOTE | 2022-08-28 17:06 | PM.IMPN ---
Progress Note: A&P Assessment and Plan (1) TIA (transient ischemic attack): Code(s): G45.9 - Transient cerebral ischemic attack, unspecified Status: Acute Assessment and Plan: Patient presented after symptoms for more than 24 hours. [facility] Stroke team consulted and patient not a candidate for TPA. She had a prior stroke with right sided weakness RUE approximately 6 months ago and treated at [facility] CT head demonstrates old stroke left basal ganglia, no acute changes. Brain MRI no acute stroke Carotid US <50% left/right ICA stenosis Echocardiogram with bubble study pending. Lipid panel with LDL <70, triglycerides 130, HDL 43. A1c 5.4% Loading dose of plavix given in ED. Stopped as no acute stroke noted on MRI Continue ASA 81 mg daily and high-intensity statin Neurology consulted and appreciate recommendations PT/OT consult and recommend SNF, but patient does not want rehab. Consult care coordination for home health needs. Neuro checks Q4 hours (2) Morbidly obese: Code(s): E66.01 - Morbid (severe) obesity due to excess calories Status: Chronic Assessment and Plan: Recommend weight loss through lifestyle and diet modifications (3) Sleep apnea: Code(s): G47.30 - Sleep apnea, unspecified Status: Chronic Assessment and Plan: Encourage CPAP use. (4) Type 2 diabetes mellitus: Qualifiers: Diabetes mellitus complication detail: with other circulatory complications Diabetes mellitus complication status: with circulatory complication Diabetes mellitus snf insulin use: without snf use Qualified Code(s): E11.59 - Type 2 diabetes mellitus with other circulatory complications Code(s): E11.9 - Type 2 diabetes mellitus without complications Status: Chronic Assessment and Plan: A1c <7%. Continue Rybelsus and Farxxiga. Patient to bring from home. (5) Rosacea: Code(s): L71.9 - Rosacea, unspecified Status: Chronic Assessment and Plan: Follow-up in outpatient setting as needed (6) Hypertension: Qualifiers: Hypertension type: primary hypertension Qualified Code(s): I10 - Essential (primary) hypertension Code(s): I10 - Essential (primary) hypertension Status: Chronic Assessment and Plan: vitals reviewed. BP 141/68 to 158/88. Increase lisinopril 20 mg daily and continue metoprolol at home dose. (7) Hypothyroid: Qualifiers: Hypothyroidism type: acquired Qualified Code(s): E03.9 - Hypothyroidism, unspecified Code(s): E03.9 - Hypothyroidism, unspecified Status: Chronic Assessment and Plan: TSH within normal limits. Continue levothyroxine at home dose. (8) Chronic constipation: Code(s): K59.09 - Other constipation Status: Chronic Assessment and Plan: continue stool softeners (9) Anxiety: Code(s): F41.9 - Anxiety disorder, unspecified Status: Acute Assessment and Plan: Anxiety related to ambulation post-stroke. Continue prozac Add buspar 7.5 mg BID PRN xanax 0.25 mg daily before therapy. Plan All patient and family questions answered to the best of my ability Time Spent With Patient Time with patient: 25 - 35 minutes Subjective Date/time seen: 08/28/22 17:06 She denies new symptoms or concerns. No overnight events. Her IV blew and her echocardiogram had to be deferred. No aphasia, slurred speech, dysphasia, worsening right leg heaviness, new paresthesia or dizziness. She has intermittent nausea, but no emesis. She notices worsening nausea when getting up. She worked with PT today and felt very anxious and had nausea. Her reports her physical level has declined in the last few weeks and is interested in home health therapy. PT recommends more therapy. Patient has 24 hour care at home. Review of Systems Review of Systems: All systems reviewed & are unremarkable except as noted in H
[2022-08-28] MEDS: MELATONIN 5 MG TABLET 10 MG PO (21:37)
[2022-08-28] MEDS: busPIRone HCL 2.5 MG, busPIRone HCL 5 MG 7.5 MG PO (21:38)
[2022-08-28] MEDS: TOLNAFTATE 1% POWDER 45 GM BTL 1 APPLIC TOPICAL (21:38)
[2022-08-29] VITALS: BP 126/68; PULSE 85; PULSE 88; RESP 18; TEMP 36.8; O2SAT 98
[2022-08-29 01:45] VITALS: PULSE 80; RESP 18; O2SAT 96
[2022-08-29 04:00] VITALS: BP 141/93; PULSE 77; RESP 18; TEMP 36.8; O2SAT 98
[2022-08-29] MEDS: BACLOFEN 10 MG TABLET PO ×2 (06:29→09:48)
[2022-08-29 08:00] VITALS: BP 140/77; PULSE 74; RESP 14; TEMP 35.9; O2SAT 97
[2022-08-29] MEDS: ATORVASTATIN 40 MG TABLET PO (09:48)
[2022-08-29] MEDS: ASPIRIN 81 MG ENTERIC TABLET PO (09:48)
[2022-08-29] MEDS: DOCUSATE SODIUM 100 MG CAPSULE PO (09:49)
[2022-08-29] MEDS: FLUoxetine HCL 20 MG CAPSULE PO (09:49)
[2022-08-29] MEDS: GABAPENTIN 300 MG CAPSULE PO (09:49)
[2022-08-29] MEDS: busPIRone HCL 2.5 MG, busPIRone HCL 5 MG 7.5 MG PO (09:49)
[2022-08-29] MEDS: lisinopriL 20 MG TABLET PO (09:50)
[2022-08-29] MEDS: LEVOTHYROXINE SODIUM 25 MCG TABLET PO (09:50)
[2022-08-29] MEDS: PANTOPRAZOLE 40 MG TABLET PO (09:50)
[2022-08-29 09:53] VITALS: PULSE 84
[2022-08-29] MEDS: METOPROLOL TARTRATE 25 MG TABLET PO (09:53)
[2022-08-29] MEDS: TOLNAFTATE 1% POWDER 45 GM BTL 1 APPLIC TOPICAL (09:54)
[2022-08-29] MEDS: ALPRAZolam (*CRX) 0.25 MG TABLET PO (11:02)
[2022-08-29 12:00] VITALS: BP 111/77; PULSE 82; RESP 14; TEMP 36.2; O2SAT 98
== END 2022-08-29 15:15 | disposition home health service (06) ==
LOC: ANHED 23:33 → ANH3MEDSUR 08-27 04:12
PROVIDERS: Nurse Practitioner Family; Admitting Provider Internal Medicine; Emergency Provider Emergency Medicine; PCP Family Medicine; Visit Provider Chiropractor
DX: G45.9 Transient cerebral ischemic attack, unspecified (principal); E66.01 Morbid (severe) obesity due to excess calories; Z68.44 Body mass index [BMI] 60.0-69.9, adult; G47.30 Sleep apnea, unspecified; E11.59 Type 2 diabetes mellitus with other circulatory complications; L71.9 Rosacea, unspecified; I11.9 Hypertensive heart disease without heart failure; E03.9 Hypothyroidism, unspecified; K59.09 Other constipation; I69.351 Hemiplegia and hemiparesis following cerebral infarction affecting right dominant side; Z20.822 Contact with and (suspected) exposure to COVID-19; R90.82 White matter disease, unspecified; R29.704 NIHSS score 4; R29.898 Other symptoms and signs involving the musculoskeletal system; R20.0 Anesthesia of skin; J45.909 Unspecified asthma, uncomplicated; G56.00 Carpal tunnel syndrome, unspecified upper limb; I34.81 Nonrheumatic mitral (valve) annulus calcification; K57.92 Diverticulitis of intestine, part unspecified, without perforation or abscess without bleeding; Z87.442 Personal history of urinary calculi; I45.6 Pre-excitation syndrome; Z79.84 Long term (current) use of oral hypoglycemic drugs; Z79.82 Long term (current) use of aspirin; Z79.01 Long term (current) use of anticoagulants; Z79.891 Long term (current) use of opiate analgesic; Z79.899 Other long term (current) drug therapy; Z83.3 Family history of diabetes mellitus
CPT/HCPCS: 36415; 70450; 70553; 71046; 80048; 80053; 80061; 81001; 82948; 83036; 84443; 84484; 85025; 85027; 85610; 85730; 87636; 93306; 93880; 94660; 96374; 96375; 97116; 97162; 97165; 97530; 99285; A9270; A9577; G0378; J2060

== ENCOUNTER → 2023-05-09 15:44 | Outpatient (CLI) | payer BC, SELFPAY ==
--- NOTE | ~2023-05-09 | US_ITS ---
EXAMINATION: US thyroid DATE: 05/09/2023 16:12 INDICATION: Nontoxic goiter TECHNIQUE: Multiple ultrasound images of the thyroid were obtained. COMPARISON: 05/22/2022 FINDINGS: The right thyroid lobe measures 3.5 x 1.3 x 1.8 cm. The left thyroid lobe measures 3.9 x 1.4 x 1.4 c m. No significant interval change in a few <5 mm wider than tall, solid, hypoechoic nodules with ill -defined margins and without echogenic foci (TI-RADS 4, moderately suspicious , FNA if >=1.5 cm, nicki al followup is >=1 cm). There is normal echotexture, echogenicity and vascular flow throughout the th yroid gland. IMPRESSION: 1. Multinodular goiter with no interval change in a few <5 mm nodules which do not meet requirement f or either biopsy or follow-up. Reviewed, dictated and finalized at location A. IMPRESSION: 1. Multinodular goiter with no interval change in a few <5 mm nodules which do not meet requirement for either biopsy or follow-up.
== END ==
PROVIDERS: PCP Family Medicine; Visit Provider Internal Medicine Endocrinology, Diabetes & Metabolism
DX: E04.2 Nontoxic multinodular goiter (principal)
CPT/HCPCS: 76536

== ENCOUNTER 2023-05-19 10:03 | Outpatient (CLI) | payer BC, SELFPAY ==
--- NOTE | ~2023-05-19 | CT_ITS ---
EXAMINATION: CT brain wo con DATE: 05/19/2023 10:52 INDICATION: SUBDURAL HEMATOMA . TECHNIQUE: Computed tomography (CT) of the head was performed without intravenous contrast. The mA wa s adjusted according to patient size. Iterative reconstruction technique was employed. The dose-lengt h product was 605.33 mGy-cm. COMPARISON: CT brain 08/26/2022; MR brain 08/27/2022. FINDINGS: No acute intracranial hemorrhage or extra-axial fluid collection. No hydrocephalus, mass, or herniation. No acute ischemic infarct. Unremarkable dural venous sinus attenuation. No acute osseous abnormality. The aerated spaces are clear. Moderate atrophy and chronic white matter change. Atherosclerotic intracranial calcification. Old foc al infarct in the left basal ganglia. Prominent bifrontal extra-axial spaces, unchanged. IMPRESSION: No acute intracranial process. Chronic changes detailed above. Reviewed, dictated and finalized at location K.
== END 2023-05-19 10:04 | disposition home or self-care (01) ==
PROVIDERS: PCP Family Medicine; Visit Provider Psychiatry & Neurology Neurology
DX: S06.5X0A Traumatic subdural hemorrhage without loss of consciousness, initial encounter (principal); X58.XXXA Exposure to other specified factors, initial encounter
CPT/HCPCS: 70450

== ENCOUNTER 2023-12-12 11:02 | Outpatient (CLI) | payer BC, SELFPAY ==
--- NOTE | ~2023-12-12 | US_ITS ---
EXAMINATION: US thyroid DATE: 12/12/2023 11:28 INDICATION: Multiple thyroid nodules. TECHNIQUE: Multiple ultrasound images of the thyroid were obtained. COMPARISON: Ultrasound 05/09/2023, 01/13/2019 FINDINGS: The right thyroid lobe measures 4.2 x 1.1 x 1.5 cm. The left thyroid lobe measures 3.7 x 1.6 x 1.9 c m. In the right thyroid lobe, there is a 4 mm nodule. In the left thyroid lobe, there is a 5 mm clau d, hypoechoic, wider than tall nodule with smooth margin without echogenic foci (TI-RADS TR4). In the left thyroid lobe, there is a 5 mm solid, hypoechoic, wider than tall nodule with ill-defined margin without echogenic foci (TR4). IMPRESSION: 1. Small thyroid nodules, likely not clinically significant. No follow-up is needed. Reviewed, dictated and finalized at location A. IMPRESSION: 1. Small thyroid nodules, likely not clinically significant. No follow-up is ne eded.
== END 2023-12-12 11:03 ==
PROVIDERS: PCP Internal Medicine Endocrinology, Diabetes & Metabolism; Visit Provider Internal Medicine
DX: E04.2 Nontoxic multinodular goiter (principal)
CPT/HCPCS: 76536

== ENCOUNTER 2025-02-09 07:10 | Outpatient (CLI) | payer BC, SELFPAY ==
--- OUTSIDE RECORDS SUMMARY | 2025-02-09 07:16 | XMS_ITS | Data Portability ---
Author Organization [place] - [facility], Main Office Address [address] [place] [address] Care Team Providers Care Manager Pipeline Name Role Phone BILL LAROSE Primary Care Provider BILL LAROSE Referring Provider ATA SAMUEL Primary Care Provider Assessment No assessment recorded. Plan of Treatment Reminders Order Date Submit Date Provider Last Modified By Organization Details Last Modified Time Details Appointments None recorded. Lab testosteron e, free + total, serum 2022 023 CHRISSIE Chirinos, [address], [place], [address], 3 12:26:10 dhea-sulfat e, serum 2022 023 CHRISSIE Chirinos, [address], [place], [address], 3 12:26:06 iron + total iron-bindin g capacity (TIBC), serum 2022 023 CHRISSIE Chirinos, [address], [place], [address], 3 12:26:09 estradiol, serum 2022 023 CHRISSIE Chirinos [address], [place], [address], 3 12:26:05 progesteron e, serum 2022 023 CHRISSIE Chirinos [address], [place], [address], 3 16:38:19 lipid panel, serum 2022 023 CHRISSIE [facility], [address], [place], [address], 3 12:04:57 HbA1c (hemoglobin A1c), blood 2022 023 frantz Chirinos, [address], [place], [address], 3 15:34:05 albumin/cre atinine, mass ratio, urine 2022 023 frantz Chirinos, [address], [place], [address], 3 15:34:05 vitamin D, 25-hydroxy, total, serum 2022 023 CHRISSIE Chirinos, [address], [place], [address], 3 12:26:06 TSH + free T4, serum 2022 023 frantz Chirinos, [address], [place], [address], 3 15:34:05 T3, free, serum or plasma 2022 023 [email or web address] Chirinos, [address], [place], [address], 3 15:34:05 CMP, serum or plasma 2022 023 frantz Chirinos, [address], [place], [address], 3 15:34:05 Referral endocrinolo gy referral 2022 023 ashwin Sapp MD, [address] [facility], [place], [address], 3 13:51:17 orthopedic surgeon referral 2022 023 [email or web address] Not available 10:32:54 Procedures None recorded. Surgeries None recorded. Imaging None recorded. Medication Orders Mounjaro 7.5 mg/0.5 mL subcutaneou s pen injector [email or web address], [address] [facility] , [place], [place], [id number], 3 13:31:50 ergocalcife rol (vitamin D2) 1,250 mcg (50,000 unit) capsule 2022 023 [facility], [address] [facility] , [place], [place], [id number], 3 11:50:00 Vitamin D3 50 mcg (2,000 unit) capsule [address], [address] [facility] , [place], [id number], 3 11:52:25 bempedoic acid 180 mg tablet 2022 023 [facility], [address] [facility] , [place], [place], [id number], 3 11:49:28 levothyroxi ne 25 mcg tablet 2022 023 [facility], [address] , [place], [place], [id number], 3 11:48:45 Repatha SureClick 140 mg/mL subcutaneou s pen injector 2022 023 [email or web address] [facility], [address], [place], [place], [id number], 21:08:52 Patient TargetsNo targets recorded. Patient InstructionsNo instructions recorded. Reason for Referral Orthopedic Surgeon Referral for Pain of left knee joint Referring Physician: Grecia Bryan, Endocrinology, Encounter Date: 02/09/2023 Endocrinology Referral for W ell controlled type 2 diabetes mellitus Referring Physician: Grecia Bryan, Endocrinology, Encounter Date: 05/18/2023 Results Created Date Observation Date Name Description Value Unit Range Abnormal Flag Note LastModifiedBy Organization Detail LastModifiedTime 05/22/20 22 05/22/2022 US, thyro id No observ ation record ed. [id number] [facility] [address], [place], [address], 11/08/2022 01:00:03 05/24/20 22 05/22/2022 US, thyro id No observ ation record ed. [id number] [facility] [address], [place], [address], 11/08/2022 01:00:03 05/10/20 23 05/09/2023 US, thyro id No observ ation record ed. [email or web address] [facility] [address], [place], [address], 05/14/2023 20:56:06 05/10/20 23 05/09/2023 US, thyro id No observ ation record ed. [email or web address] [facility] [address], [place], [address], 05/14/2023 20:56:06 12/12/19 24 12/12/2023 US, thyro id No observ ation record ed. [email or web address] [facility] [address], [place], [address], 12/15/2023 14:51:08 12/13/19 24 12/12/2023 US, thyro id No observ ation record ed. [email or web address] [facility] [address], [place], [address], 12/15/2023 14:51:09 Result Notes None recorded. Problems Name Problem SNOMED Code Status Onset Date Resolution Date Notes Provider Name and Address Organization Details Recorded Time Pain of left knee joint [id number] 07 Active 2022 Grecia Bryan MD [address], [address], [place], [address] , [employer] [facility] 3 12:20:19 Vitamin D deficiency 32558854 Active 2022 Grecia Bryan MD [address] [employer], [address], [place], [address] , [employer] [facility] 3 12:25:41 Goiter 5645271 Active 2022 Elizabeth Benson RMCarlos null, [employer] [facility] 3 09:58:44 Uncontroll ed type 2 diabetes mellitus 728161203 Active 2022 MIKE Frederick null, [facility] [employer] 3 10:07:10 Dyslipidem ia 117976184 Active 2022 Grecia Bryan MD [address], [facility] [address], [place], [address] , [employer] 3 16:45:37 Dyslipidem ia due to type 1 diabetes mellitus 9589353308327 04 Active 2022 Grecia Bryan MD [address], [facility] [address], [place], [address] , [employer] [facility] 3 11:48:59 Loss of hair 454160730 Active 2021 Not Available [employer] 3 00:50:00 Hypertensi ve disorder 87338625 Active 2019 Not Available [facility] 3 00:50:00 Hypothyroi dism 77763907 Active 2019 Not Available [facility] 3 00:50:00 Well controlled type 2 diabetes mellitus 326320432 Active 2021 Not Available [facility] 3 00:50:00 Acute stroke 3382509534456 04 Active 2020 Not Available [facility] 3 00:50:00 Diabetes mellitus 55829965 Active 2018 Not Available [facility] 3 00:50:00 Weight gain 9517697 Active 2021 Not Available [facility] 3 00:50:00 Problem Notes None recorded. Medical Equipment None Reported. Allergies Allergen ID Allergen Name Allergen Category Reaction Reaction Severity Criticality Documentation Date Start Date Code Code System Note Provider Name and Address Organization Details Recorded Time 1064 metformin medicatio n other Not available Not available 11/08/2022 6809 RxNorm GI Issue s Not Available [facility] 3 00:59:30 1065 Levaquin medicatio n Not available Not available Not available 11/08/2022 32957 2 RxNorm Not Available [facility] 3 00:59:30 1066 Januvia medicatio n Not available Not available Not available 11/08/2022 36547 6 RxNorm Not Available [facility] 3 00:59:30 53565 sitaglipt in medicatio n Not available Not available Not available 05/18/2023 48876 1 RxNorm Linda Mccarty RN null, [place] [facility] [place] [facility] 3 11:02:17 Medications Name Sig Start Date Stop Date Status Note LastModified by Organization Details LastModified Time cyclobenzap rine 10 mg tablet active Not Available Not Available Not Available amoxicillin 500 mg capsule 09/27 completed Not Available Not Available Not Available fluconazole 100 mg tablet 06/13 completed Not Available Not Available Not Available atorvastati n 40 mg tablet active Not Available Not Available Not Available methocarbam ol 500 mg tablet 04/12 completed Not Available Not Available Not Available prednisone 10 mg tablet active Not Available Not Available Not Available cefuroxime axetil 250 mg tablet 09/27 completed Not Available Not Available Not Available ipratropium 0.5 mg-albutero l 3 mg (2.5 mg base)/3 mL nebulizatio n soln active Not Available Not Available Not Available nabumetone 750 mg tablet 04/12 completed Not Available Not Available Not Available ammonium lactate 12 % lotion Apply to both feet up to twice daily as needed 06/13 completed Not Available Not Available Not Available triamcinolo ne acetonide 0.5 % topical cream 04/12 completed Not Available Not Available Not Available atorvastati n 10 mg tablet 06/13 completed Not Available Not Available Not Available lisinopril 20 mg-hydrochl orothiazide 12.5 mg tablet 04/12 completed Not Available Not Available Not Available azithromyci n 250 mg tablet TAKE 2 TABLETS BY MOUTH TODAY, THEN TAKE 1 TABLET DAILY FOR 4 DAYS 07/11 completed Not Available Not Available Not Available ibuprofen 800 mg tablet TAKE 1 TABLET BY MOUTH THREE TIMES DAILY NEEDED FOR PAIN.DO NOT TAKE WITH OTHER NSAIDS. active Not Available Not Available No t Available fluconazole 150 mg tablet Take 1 tablet every week by oral route as needed for 30 days. active Not Available Not Available No t Available benzonatate 200 mg capsule active Not Available Not Available Not Available hydrocodone 5 mg-acetamin ophen 325 mg tablet 01/25 completed Not Available Not Available Not Available Nystop 100,000 unit/gram topical powder active Not Available Not Available Not Available meloxicam 15 mg tablet active Not Available Not Available Not Available lisinopril 20 mg tablet active Not Available Not Available Not Available prednisone 20 mg tablet 10/27 completed Not Available Not Available Not Available aspirin 81 mg tablet,denise yed release active Not Available Not Available Not Available doxycycline monohydrate 100 mg tablet 01/25 completed Not Available Not Available Not Available triamcinolo ne acetonide 0.1 % topical cream active Not Available Not Available Not Available glimepiride 2 mg tablet Take 2 tablets twice a day by oral route before meals for 90 days. 04/16 completed Not Available Not Available Not Available ondansetron 8 mg disintegrat ing tablet active Not Available Not Available N ot Available Gentak 0.3 % (3 mg/gram) eye ointment 06/13 completed Not Available Not Available Not Available levothyroxi ne 25 mcg tablet TAKE 1 TABLET BY MOUTH ON SUNDAY, SUNDAY, SUNDAY, AND SUNDAY. TAKE 2 TABLETS BY MOUTH ON SUNDAY, SUNDAY , AND SUNDAY. active Not Available Not Available No t Available glimepiride 1 mg tablet active Not Available Not Available Not Available meloxicam 7.5 mg tablet 06/13 completed Not Available Not Available Not Available oxycodone-a cetaminophe n 5 mg-325 mg tablet 04/12 completed Not Available Not Available Not Available alprazolam 0.25 mg tablet active Not Available Not Available Not Available modafinil 200 mg tablet 09/27 completed Not Available Not Available Not Available lorazepam 0.5 mg tablet active Not Available Not Available Not Available methocarbam ol 750 mg tablet 06/13 completed Not Available Not Available Not Available gentamicin 0.3 % eye drops active Not Available Not Available Not Available oxycodone-a cetaminophe n 10 mg-325 mg tablet 04/12 completed Not Available Not Available Not Available tamsulosin 0.4 mg capsule 04/12 completed Not Available Not Available Not Available dexamethaso ne 1 mg tablet Take 1 tablet as needed by oral route at 10 pm night before 8 am cortisol 05/18 completed Not Available Not Available Not Available benzonatate 100 mg capsule active Not Available Not Available Not Available cephalexin 500 mg capsule 06/13 completed Not Available Not Available Not Available oseltamivir 75 mg capsule TAKE 1 CAPSULE BY MOUTH EVERY 12 HOURS FOR 5 DAYS active Not Available Not Available No t Available neomycin-po lymyxin-dex ameth 3.5 mg/mL-10,00 0 unit/mL-0.1 % eye drops active Not Available Not Available Not Available Proctofoam HC 1 %-1 % 04/12 completed Not Available Not Available Not Available lisinopril 10 mg tablet active Not Available Not Available Not Available glimepiride 4 mg tablet 06/13 completed Not Available Not Available Not Available hyoscyamine 0.125 mg sublingual tablet 01/25 completed Not Available Not Available Not Available naproxen 500 mg tablet,denise yed release 01/01 completed Not Available Not Available Not Available polymyxin B sulfate 10,000 unit-trimet hoprim 1 mg/mL eye drops DROP 1 DROP INTO AFFECTED EYE(S) ONCE EVERY 3 HOURS FOR 10 DAYS, MAX 6 DROPS/24 HOURS active Not Available Not Available No t Available nystatin-tr iamcinolone 100,000 unit/g-0.1 % topical cream active Not Available Not Available Not Available Synthroid 50 mcg tablet Take 1 tablet every day by oral route in the morning for 90 days. active Not Available Not Available No t Available gabapentin 300 mg capsule active Not Available Not Available Not Available buspirone 7.5 mg tablet active Not Available Not Available Not Available budesonide 0.5 mg/2 mL suspension for nebulizatio n active Not Available Not Available Not Available lisinopril 20 mg-hydrochl orothiazide 25 mg tablet 01/25 completed Not Available Not Available Not Available aspirin 81 mg chewable tablet active Not Available Not Available Not Available mupirocin 2 % topical ointment 06/13 completed Not Available Not Available Not Available gabapentin 100 mg capsule 12/13 completed Not Available Not Available Not Available lisinopril 10 mg-hydrochl orothiazide 12.5 mg tablet Take 1 tablet every day by oral route in the morning for 30 days. active Not Available Not Available No t Available ibuprofen 600 mg tablet 12/27 completed Not Available Not Available Not Available albuterol sulfate HFA 90 mcg/actuati on aerosol inhaler INHALE 2 PUFFS BY MOUTH EVERY 4 TO 6 HOURS NEEDED FOR PAIN. active Not Available Not Available No t Available Vitamin D2 1,250 mcg (50,000 unit) capsule Take 1 Capsule (50,000 Units) by mouth every other week. active Not Available Not Available No t Available ondansetron 4 mg disintegrat ing tablet active Not Available Not Available N ot Available fluoxetine 20 mg capsule active Not Available Not Available Not Available fluticasone propionate 50 mcg/actuati on nasal spray,suspe nsion 06/13 completed Not Available Not Available Not Available metformin ER 500 mg tablet,exte nded release 24 hr Take 1 tablet every day by oral route in the morning for 90 days. active Not Available Not Available No t Available doxycycline hyclate 100 mg tablet 01/25 completed Not Available Not Available Not Available loratadine 10 mg tablet Take 1 tablet every day by oral route in the morning for 90 days. 09/27 completed Not Available Not Available Not Available naproxen 500 mg tablet 06/13 completed Not Available Not Available Not Available Microlet Lancet active Not Available Not Available Not Available amoxicillin 875 mg-pottahiru m clavulanate 125 mg tablet TAKE 1 TABLET BY MOUTH ONCE EVERY 12 HOURS FOR 7 DAYS 05/18 completed Not Available Not Available Not Available neomycin 3.5 mg/g-polymy vini B 10,000 unit/g-dexa meth 0.1 % eye oint active Not Available Not Available Not Available One Touch test strips Use one strip to check blood sugar levels twice a day before meals active Not Available Not Available No t Available cyclobenzap rine 5 mg tablet 06/13 completed Not Available Not Available Not Available rosuvastati n 20 mg tablet Take 1 tablet twice a week by oral route at bedtime for 30 days. active Not Available Not Available No t Available rosuvastati n 40 mg tablet Take 1 Tablet (40 mg) by mouth every other day at bedtime active Not Available Not Available No t Available metoprolol tartrate 25 mg tablet active Not Available Not Available No t Available Januvia 25 mg tablet Take 1 tablet every day by oral route in the morning for 30 days. 09/27 completed Not Available Not Available Not Available Januvia 50 mg tablet Take 1 tablet every day by oral route in the morning for 30 days. 04/16 completed Not Available Not Available Not Available estradiol-n orethindron e acet 0.5 mg-0.1 mg tablet 12/27 completed Not Available Not Available Not Available peg 3350 240 gram-electr olytes 22.72 gram-6.72 g-5.84 g powdr for soln 12/27 completed Not Available Not Available Not Available Vitamin D3 50 mcg (2,000 unit) capsule Take 1 CAPSULE (2,000 Units) by mouth daily in the morning. active Not Available Not Available No t Available Contour Next Test Strips USE TO TEST BLOOD SUGAR TWICE DAILY BEFORE MEALS active Not Available Not Available No t Available lancets 33 gauge Use to test blood sugar TWICE DAILY. active Not Available Not Available No t Available Farxiga 5 mg tablet active Not Available Not Available No t Available Jardiance 25 mg tablet active Not Available Not Available Not Available Soolantra 1 % topical cream 09/27 completed Not Available Not Available Not Available Repatha SureClick 140 mg/mL subcutaneou s pen injector active Not Available Not Available Not Available Contour Next One Meter Use to check glucose active Not Available Not Available No t Available Steglatro 15 mg tablet Take 1 tablet every day by oral route in the morning for 30 days. 04/16 completed Not Available Not Available Not Available Steglatro 5 mg tablet TAKE ONE TABLET BY MOUTH EVERY MORNING 09/27 completed Not Available Not Available Not Available baclofen 5 mg tablet active Not Available Not Available No t Available Rybelsus 14 mg tablet TAKE ONE TABLET BY MOUTH ONCE DAILY active Not Available Not Available No t Available Rybelsus 7 mg tablet Take 1 tablet every day by oral route in the morning for 90 days. 12/13 completed Not Available Not Available Not Available Rybelsus 3 mg tablet 09/27 completed Not Available Not Available Not Available Nexletol 180 mg tablet Take 180 mg by mouth daily in the morning. active Not Available Not Available No t Available FreeStyle Laura 2 Sensor kit active Not Available Not Available N ot Available FreeStyle Laura 2 [place] active Not Available Not Available Not Available Paxlovid 300 mg (150 mg x 2)-100 mg tablets in a dose pack TAKE 3 TABLETS BY MOUTH TWICE A DAY FOR 5 DAYS 05/18 completed Not Available Not Available Not Available Mounjaro 7.5 mg/0.5 mL subcutaneou s pen injector Inject 7.5 mg every week by subcutane ous route at dinner for 90 days. active Not Available Not Available No t Available Mounjaro 5 mg/0.5 mL subcutaneou s pen injector Inject 5 mg every week by subcutane ous route at dinner for 90 days. 05/18 completed Not Available Not Available Not Available Mounjaro 2.5 mg/0.5 mL subcutaneou s pen injector Inject 2.5 mg every week by subcutane ous route at dinner for 90 days. 05/18 completed Not Available Not Available Not Available Vitals Date Recorded Body mass index (BMI) Body height Oxygen saturation Oxygen saturation in Arterial blood by Pulse oximetry Heart rate Respiratory rate Body temperature Body weight Systolic blood pressure Diastolic blood pressure Provider Name and Address Organization Details Last Updated DateTime 3 63.8 kg/m2 149.86 cm 96 % 96 % 64 /min 18 /min 97.5 [degF] 498459. 19 g 138 mm[Hg] 90 mm[Hg] Not Available [facility] 3 00:45:15 Date Recorded Body height Provider Name an d Address Organization Details Last Updated DateTime 12/13/2021 149.86 cm Not Available [facility] 3 00:45:16 Date Recorded Body height Body mass index (BMI) Body weight Body temperature Heart rate Systolic blood pressure Diastolic blood pressure Provider Name and Address Organization Details Last Updated DateTime 3 149.86 cm 63.6 kg/m2 132270. 6 g 97.6 [degF] 65 /min 112 mm[Hg] 62 mm[Hg] MIKE Morrison [facility] [employer] [facility] 3 11:40:41 Date Recorded Body weight Respiratory rate Body temperature Heart rate Body mass index (BMI) Body height Systolic blood pressure Diastolic blood pressure Provider Name and Address Organization Details Last Updated DateTime 3 773368. 78 g 16 /min 97.8 [degF] 65 /min 64 kg/m2 149.86 cm 129 mm[Hg] 66 mm[Hg] Linda Mccarty RN [facility] [employer] [facility] 3 11:04:14 Date Recorded Body mass index (BMI) Body height Oxygen saturation Oxygen saturation in Arterial blood by Pulse oximetry Heart rate Body temperature Body weight Systolic blood pressure Diastolic blood pressure Provider Name and Address Organization Details Last Updated DateTime 2 63.2 kg/m2 149.86 cm 96 % 96 % 69 /min 97.6 [degF] 976541. 41 g 145 mm[Hg] 95 mm[Hg] Not Available [facility] 3 00:45:15 Social History Question Answer Notes LastModified by Organizat ion Details LastModified Time Tobacco Smoking Status Never Smoker Not Available [facility] 11/08/2022 00:41:43 What Is Your Level Of Caffeine Consumption? Moderate [id number] Information not available 11/08/2022 In The 14 Days Before Symptom Onset, Have You Had Close Contact With A Laboratory-confirm ed COVID-19 While That Case Was Ill? No [id number] Information not available 11/08/2022 In The 14 Days Before Symptom Onset, Have You Had Close Contact With A Person Who Is Under Investigation For COVID-19 While That Person Was Ill? No [id number] Information not available 11/08/2022 What Is Your Relationship Status? [id number] Information not available 11/08/2022 Has Tobacco Cessation Counseling Been Provided? No [id number] Information not available 11/08/2022 Have You Recently Traveled Abroad? No [id number] Information not available 11/08/2022 Sex: Unknown Functional Status Question Answer Note LastModified by Organizat ion Details LastModified Time Do you use any illicit or recreational drugs? No [id number] Information not available 11/08/2022 Do you or have you ever used any other forms of tobacco or nicotine? No [id number] Information not available 11/08/2022 What is your level of alcohol consumption? None [id number] Information not available 11/08/2022 Mental Status None recorded. Family History Relationship Description Onset Age of this Age Resolved Age Notes LastModified by Organization Details LastModified Time Father Malignant neoplasm of lung [id number] Not available 11/08/2022 00:43:40 Mother Congestive heart failure [id number] Not available 11/08/2022 00:43:40 Medical History Condition Response DIABETES, TYPE Y HYPERTENSION Y STROKE/TIA Y HYPOTHYROIDISM Y Gynecological HistoryNo gynecological history recorded. Obstetrics History GPAL:G 0 P 0 0 0 0 Past Encounters Encounter ID Performer Location Encounter Start Date Encounter Closed Date Diagnosis/Indication Diagnosis SNOMED-CT Code Diagnosis ICD10 Code Diagnosis Note [id number] Grecia Bryan MD [facility] [address] [place] [address] 06/13/2021 00:00:00 06/13/2021 18:29:06 [id number] Grecia Bryan MD [facility] [address] [place] [address] 09/13/2021 00:00:00 09/14/2021 10:06:59 [id number] Grecia Bryan MD [facility] [address] [place] [address] 12/13/2021 00:00:00 12/13/2021 21:50:06 [id number] Grecia Bryan MD [facility] [address] [place] [address] 07/11/2022 00:00:00 07/11/2022 13:28:36 [id number] Grecia Bryan MD [facility] [address] [place] [address] 11/03/2022 00:00:00 11/03/2022 21:43:15 [id number] Grecia Bryan MD [facility] [address] [place] [address] 02/09/2023 11:24:40 02/09/2023 12:30:10 Hypothyroidism 26658104 E03.9 TSH and FT4 in ideal range- continue synthroid 25 mcg every other day with 50 mg every other day. She was reminded to take her synthroid on empty stomach with glass of water and wait one hour to eat or have her coffee in morning and up to 4 hours if ever taking any heartburn or reflux medication s to help optimize absorption . Discussed paleo like diet with restrictio n of GMOs to help with energy and to optimize absorption of vitamins and minerals and reduce inflammati on. Well contr olled type 2 diabetes mellitus [id number] E11.9 a1c of 5.6% in ideal range on rybelsus 14 mg daily- patient struggling with hunger and looking for alternativ e therapy. Provided mounjaro samples and patient aware to stop rybelsus for 2 weeks prior to starting her first injection. She has no hx of pancreatit is or medullary thyroid cancer and is willing to trial on a GLP1 agonist therapy. She was advised to contact clinic if she experience s any nausea, vomiting or significan t thyroid pain / swelling or abdominal pain so we can discuss and discontinu e and potentiall y look to other therapy. Will trial on mounjaro 2.5 mg SQ weekly x 4 weeks then increase to 5 mg SQ weekly with largest meal of that day as tolerated. History of cerebrovascular accident [id number] Z86.73 She is having more muscle aches and cramps on statin therapy. Due to history of CVD and stroke- she needs tight control of LDL - will transition to repatha due to statin intoleranc e. Pain of le ft knee joint [id number] 82069 M25.562 refer to orthopedic surgeon as patient might need injections . Loss of hair [id number] L 65.9 Complete hormone panel to screen for hyperandro genism or otehr hormonal changes. Vitamin D deficiency [id number] E55.9 Continue on vitamin D 50 every 2 weeks during summer and weekly during winter months. Spent up to 28 minutes preparing to see the patient (eg, review of tests), obtaining and/or reviewing separately obtained history, performing a medically appropriat e examinatio n and evaluation , counseling and educating the patient, ordering medication s, tests, along with documentin g clinical informatio n in the electronic health record, independen tly interpreti ng results and communicat ing results to the patient. RTC in 3-4 months. Patient was provided a handwritte n lab order which contains our fax number. If she chooses to go outside of the [facility] system to obtain labwork she was advised to provide our fax number and my informatio n to the lab she will be obtaining labwork from in order to have her labs properly forwarded over for me to review so there is no loss of follow up due to use of outside network. She was also advised to contact our clinic informing us that she has completed her labwork so we are aware we will need to reach out to the appropriat e laboratory to request her results be forwarded to us so I might have the ability to review and make further medical decision making in her case. She voiced understand ing. [id number] Grecia Bryan MD [facility] [address] [place] [address] 05/18/2023 10:46:14 05/18/2023 13:51:16 Well controlled type 2 diabetes mellitus [id number] E11.9 A1C of 5.8% in ideal range- continue mounjaro as patient tolerating well and losing weight- will uptitrate mounjaro to 7.5 mg once weekly. Recommende d she adhere to at least 1200 calorie per day intake with multiple small 300-400 calorie meals (4-5 small meals per day) on sedentary days. Discussed cutting out GMOs along with preservati ves and focusing on fruits, veggies, unprocesse d beans and nuts along with meats for the bulk of her diet. Refer to endocrinol ogy per patient request. Hypothyroidism [id number] E03.9 TSH in ideal range will continue synthroid 25 mcg every other day with 50 mg every other day. She was reminded to take her thyroid on empty stomach with glass of water and wait one hour to eat or have her coffee in morning and up to 4 hours if ever taking any heartburn or reflux medication s to help optimize absorption . Discussed paleo like diet with restrictio n of GMOs to help with energy and to optimize absorption of vitamins and minerals and reduce inflammati on. Dyslipidem ia due to type 1 diabetes mellitus [id number] 31155 E78.5 Dyslipidem ia is secondary to type 2 DM- having statin intoleranc e- trial on bempedoic acid as goal LDL under 50 mg/dL due to hx of CVD. Vitamin D deficiency [id number] E55.9 Continue on vitamin D 50 every week and start on vitamin D 3 2000 IU daily as levels low normal range for bone and immune health. 2 weeks during summer and weekly during winter months. Spent up to 25 minutes preparing to see the patient (eg, review of tests), obtaining and/or reviewing separately obtained history, performing a medically appropriat e examinatio n and evaluation , counseling and educating the patient, ordering medication s, tests, along with documentin g clinical informatio n in the electronic health record, independen tly interpreti ng results and communicat ing results to the patient. Patient can be followed by PCP - she/he is aware of my resignatio n and last day of June 22. If needed his/her PCP can refer patient to another endocrinol ogist in the area. All questions /concerns answered and refills necessary at visit today. Health Concerns Section Related Observation LastModified by Organization Detai ls LastModified Time None Recorded Concern Status LastModified by Organization Details LastModified Time None Recorded Advance Directives Directive None Recorded Payers Encounter Date Sequence Insurance Name Policy Number Policy Adkins Covered Member ID Adkins Member ID Guarantor Name 02/09/[address] [facility] (PPO) [id number] Jonh Garcia [id number] 05/18/2023 1 [facility] (PP[facility]) [id number] Jonh Garcia [id number] Pascale Garcia Notes Date Note Type Note Provider Name and Address Organization Details Recorded Time 02/09/2023 text/html 57 yo female com es in for follow up in management of well controlled type 2 DM (A1C of 5.6%), hypothyroidism, dyslipidemia last seen in Oct at that time we continued rybelsus 14 mg daily as she did not tolerate mounjaro trial. we continued rosuvastatin 40 mg every other day. we continued synthroid 50 mcg every other day with 25 mcg every other day. She had an event when her blood pressure went up to 180/110 mmHg in August- since that time she has wanted nothing but sweets. She is having muscle aches and cramps since going on the statin therapy. sugars running 90 mg/dL up to 130 mg/dLno hypoglycemia labs from 01/27:microalbumin 4 ug/mgA1C of 5.6%TSH of 2.19 uIU/mlFT4 of 1.19 ng/dL121/106/48/53glu cose 94 mg/dLCr normalLFT normal Grecia Bryan MD [address] [facility], [place] [address], [place], [address], [place] [facility] 02/09/2023 21:15:10 05/18/2023 text/html 57 yo female com es in for follow up in management of well controlled type 2 DM (A1C of 5.8%), dyslipidemia and hypothyroidism. Last seen in February at that time we had patient continue synthroid 25 mcg every other day with 50 mg every other day. we transitioned off rybelsus to mounjaro. She is tolerating well. we transitioned to repatha for lipid control. we referred to orthopedic surgery for right knee pain. She saw orthopod yesterday at [place] and will be getting a right knee injection for arthritis following drainage and will do both knees at the same time. She has increased the mounjaro to 5 mg once weekly- she has been on the 5 mg dose for 3 weeks now but still having some cravings. labs from 05/05/23:TSH of 2.45 uIU/mlFT4 of 1.25 ng/dLglucose 90 mg/dLLFT highCr /184/42/76ir on sat 24%microalbumin 4 ug/mgtestosterone 13 ng/dLa1c 5.8%dheas normalestradiol 17.6 pg/mLvit D 32.6 ng/mLprogesterone 0.3 ng/ml Grecia Bryan MD [address] [facility] [address], [place], [address], [place] [facility] 05/18/2023 13:35:18 OBGyn Episode No OBEpisode recorded.
== END 2025-02-09 07:11 | disposition home or self-care (01) ==
LOC: ANHLAB 07:13
PROVIDERS: PCP Internal Medicine Endocrinology, Diabetes & Metabolism; Visit Provider Internal Medicine Endocrinology, Diabetes & Metabolism
DX: E03.9 Hypothyroidism, unspecified (principal); E11.65 Type 2 diabetes mellitus with hyperglycemia; E66.9 Obesity, unspecified; E55.9 Vitamin D deficiency, unspecified; E78.5 Hyperlipidemia, unspecified; R53.83 Other fatigue
CPT/HCPCS: 36415; 80299; 82533

== ENCOUNTER 2025-03-03 07:45 | Outpatient (CLI) | payer BC, SELFPAY ==
[2025-03-03 09:48] LABS: Cortisol Random 0.96 ug/dL
== END 2025-03-03 07:46 | disposition home or self-care (01) ==
PROVIDERS: PCP Internal Medicine Endocrinology, Diabetes & Metabolism; Visit Provider Internal Medicine Endocrinology, Diabetes & Metabolism
DX: E11.65 Type 2 diabetes mellitus with hyperglycemia (principal); E66.9 Obesity, unspecified; E03.9 Hypothyroidism, unspecified; E55.9 Vitamin D deficiency, unspecified; E78.5 Hyperlipidemia, unspecified; R53.83 Other fatigue
CPT/HCPCS: 36415; 82533

== ENCOUNTER 2025-08-14 08:19 | Outpatient (CLI) | payer BC, SELFPAY ==
--- NOTE | ~2025-08-14 | US_ITS ---
US right upper quadrant Indication: Fatty liver Comparison: None Technique: Cullen-scale and color Doppler images were obtained. Findings: LIVER: Unremarkable, liver contours intact, no lesions. Normal echogenicity. . GALLBLADDER/BILIARY: Post cholecystectomy. CBD 5 mm. [place] sign negative. PANCREAS: Pancreas limited by bowel gas. Right Kidney: The right kidney was not imaged. Impression: No acute abnormality. Reviewed, dictated and finalized at location P. [facility] PERFORMER Impression: No acute abnormality.
== END 2025-08-14 08:20 | disposition home or self-care (01) ==
LOC: MICIMG 08:20
PROVIDERS: PCP Family Medicine; Visit Provider Internal Medicine Endocrinology, Diabetes & Metabolism
DX: K76.0 Fatty (change of) liver, not elsewhere classified (principal)
CPT/HCPCS: 76705